=== PATIENT | female | born 1965 | race Caucasian/White ===

== ENCOUNTER 2017-11-25 10:46 | Inpatient (IN) ==
[2017-11-25 11:17] LABS: Basophils # 0.1 K/mcL (0.0-0.2); Basophils % 0.4 %; Eosinophils # 0.1 K/mcL (0.0-0.6); Eosinophils % 1.2 %; Hematocrit 32.4 % (35.3-44.9); Hemoglobin 11.2 g/dL (11.5-15.4); Immature Granulocytes % 0.4 % (0-4); Lymphocytes # 1.5 K/mcL (0.6-4.6); Lymphocytes % 13.5 %; Mean Corpuscular HGB Conc 34.6 g/dL (31.6-35.5); Mean Corpuscular Hemoglobin 30.8 pg (28.0-33.3); Mean Platelet Volume 10.1 fL (9.4-12.4); Monocytes # 0.8 K/mcL (0.0-1.3); Monocytes % 6.6 %; Neutrophils # 8.8 K/mcL (1.6-8.9); Platelet Count 252 K/mcL (140-400); Red Blood Count 3.64 M/mcL (3.82-4.97); Red Cell Distribution Width 12.5 % (11.5-14.5); Segmented Neutrophils % 77.9 %
[2017-11-25 11:38] LABS: Acetaminophen < 10 mcg/mL (10-20); BUN/Creatinine Ratio 19 (6-26); Blood Urea Nitrogen 19 mg/dL (6-20); Calcium 9.8 mg/dL (8.6-10.3); Carbon Dioxide 28 mEq/L (23-29); Chloride 96 mEq/L (98-107); Ethanol < 10 mg/dL (Less than 10); Glucose 114 mg/dL (70-105); Osmolality,Calculated 275 (280-300); Potassium 3.5 mEq/L (3.5-5.1); Salicylate < 2.5 mg/dL (15.0-30.0); Sodium 131 mEq/L (136-145); eGFR For African Americans > 60 (> 60); eGFR For Non-African Americans 58 (> 60)
[2017-11-25 11:46] LABS: Thyroid Stimulating Hormone 2.206 mcIU/mL (0.340-5.600)
[2017-11-25 12:10] LABS: Bilirubin,Urine Negative (Negative); Blood,Urine Negative (Negative); Clarity,Urine Clear (Clear); Color,Urine Yellow (Yellow); Glucose,Urine (UA) Normal (Normal); Ketones,Urine Negative (Negative); Leukocyte Esterase,Urine Negative (Negative); Nitrite,Urine Negative (Negative); Protein,Urine Negative (Neg-Trace); Specific Gravity,Urine 1.012 (1.010-1.025); Urobilinogen,Urine Normal (Normal)
[2017-11-25 12:38] LABS: Amphetamine Screen,Urine Negative ng/mL (Cutoff=1000); Barbiturate Screen,Urine Negative ng/mL (Cutoff=200); Benzodiazepines Screen,Urine Negative ng/mL (Cutoff=200); Cannabinoid Screen,Urine Positive ng/mL (Cutoff = 50); Cocaine Screen,Urine Negative ng/mL (Cutoff= 300); Opiate Screen,Urine Negative ng/mL (Cutoff=300); Phencyclidine Screen,Urine Negative ng/mL (Cutoff=25)
--- NOTE | 2017-11-25 13:47 | Emergency Department Note ---
Disposition Clinical Impression: Visual hallucinations Disposition: Admitted As Inpatient Psych HPI - General Chief Complaint: ED Psychiatric Symptoms Stated Complaint: Hallucinations Time Seen by Provider: 11/25/17 10:59 Source: EMS Mode of arrival: ambulatory Limitations: no limitations - History of Present Illness HPI Narrative: Patient's a 52-year-old female who presented to [facility] ED on 11/25/17 with a chief complaint of hallucinations and insomnia since November 10. Patient reports that her nurse practitioner recently changed her Paxil dose from 20 mg to 40 mg. Since this time, she has been experiencing hallucinations of figures in the house that she recognizes are not really there. She describes them as "dark, stationary figures that do not speak." Patient also reports that she has not slept for the last 3 days. She has a history of intermittent insomnia, which she says has been worse since the . Patient also reports that she had several bouts of hallucinations in the past, but that it is become significantly more prominent in the last 2 weeks. Patient notes that since she has been in the hospital, she has seen several figures in her room that she recognizes are not real. During my conversation with her, she looked rapidly around the room as if seeing things that were not really there. Patient speaks in full and complete sentences, and seems to be fully aware of her condition. She is alert and oriented 3. She endorses a past history of anxiety, bipolar, and opiate abuse. She has been on Suboxone for 3 years. Patient denies having any suicidal ideation. No further complaints at this time. Onset (ago): week(s) Duration: intermittent Improves with: none Worsens with: none Associated Psychiatric Symptoms: visual hallucinations - Related Data Home Medications Medication Instructions Recorded Confirmed Amitriptyline [Elavil] 25 mg PO HS 11/25/17 11/25/17 Atorvastatin [Lipitor] 10 mg PO HS 11/25/17 11/25/17 Baclofen [Lioresal] 10 mg PO TID 11/25/17 11/25/17 Buprenorphine HCl/Naloxone HCl 1.5 tab SL QAM 11/25/17 11/25/17 [Buprenorphin-Naloxon 8-2 mg Sl] Cholecalciferol (D-3) [Vitamin D] 1,000 unit PO DAILY 11/25/17 11/25/17 Gabapentin [Neurontin] 300 mg PO TID 11/25/17 11/25/17 Metoprolol [Lopressor] 50 mg PO BID 11/25/17 11/25/17 Omeprazole [PriLOSEC] 40 mg PO DAILY 11/25/17 11/25/17 PARoxetine HCl [Paroxetine HCl] 40 mg PO DAILY 11/25/17 11/25/17 amLODIPine [Norvasc] 5 mg PO DAILY 11/25/17 11/25/17 hydrOXYzine pamoate [HydrOXYzine 25 - 50 mg PO Q6H PRN 11/25/17 11/25/17 Pamoate] Allergies Allergy/AdvReac Type Severity Reaction Status Date / Time No Known Allergies Allergy Verified 09/05/17 09:41 Constitutional: Reports: as per HPI. Denies: fever, chills, weakness Eyes: Denies: eye pain, eye discharge ENT ED: Reports: as per HPI. Denies: ear pain, throat pain Cardiovascular: Reports: as per HPI. Denies: chest pain, palpitations Respiratory: Reports: as per HPI. Denies: cough, dyspnea, wheezes Gastrointestinal: Reports: as per HPI. Denies: abdominal pain, nausea, vomiting Genitourinary: Reports: as per HPI. Denies: urgency, dysuria, frequency Musculoskeletal: Reports: as per HPI. Denies: back pain, neck pain, joint swelling Integumentary: Reports: as per HPI. Denies: abrasion, lesions Neurological: Reports: as per HPI. Denies: headache, weakness, numbness Psychiatric: Reports: as per HPI, visual hallucinations. Denies: anxiety, depression, suicidal thoughts, homicidal thoughts Endocrine: Reports: as per HPI Past Medical History - Past Medical History Medical history: Reports: hypertension Psychiatric history: Reports: anxiety, bipolar, depression - Social History Smoking Status: Current every day smoker Smokeless Tobacco Status: No Alcohol use: Reports: none Drug use: Reports: opiates, marijuana Physical Exam - General Limitations: no limitations General appearance: alert, in no apparent distress - Head Head exam: atraumatic, normocephalic - Eye Eye exam: Present: normal appearance, PERRL, EOMI - ENT ENT exam: normal exam, normal oropharynx - Neck Neck exam: Present: normal inspection, full ROM - Chest Chest inspection: Present: normal inspection, symmetric chest wall rise - Respiratory Respiratory exam: Present: normal lung sounds bilaterally. Absent: respiratory distress, accessory muscle use, prolonged expiratory phase - Cardiovascular Cardiovascular exam: Present: regular rate, normal rhythm, normal heart sounds, +S1, +S2. Absent: bradycardia, tachycardia, systolic murmur, diastolic murmur - Psychiatric Psychiatric exam: Present: normal affect, other (Experiencing visual hallucinations) - Skin Skin exam: Present: warm, dry, intact Course Course Narrative: Patient is a 52-year-old female who presents with visual hallucinations. Patient has had an intermittent history of visual hallucinations. Her condition has worsened since the 14th of this month since her Paxil dose was changed from 20 mg to 40 mg. Patient does not appear to be a harm to herself or others. She is very well aware of her condition. Patient is able to distinguish what is real from what is not. She denies having any suicidal ideation. She is able to speak in full and complete sentences, and is alert and oriented 3. We will admit patient to for evaluation. Vital Signs Temperature 98.3 F 11/25/17 10:48 Pulse Rate 81 11/25/17 10:48 Respiratory Rate 16 11/25/17 10:48 Blood Pressure 115/70 11/25/17 10:48 O2 Sat by Pulse Oximetry 95 11/25/17 10:48 Temperature 98.3 F 11/25/17 10:48 Pulse Rate 81 11/25/17 10:48 Respiratory Rate 16 11/25/17 10:48 Blood Pressure 115/70 11/25/17 10:48 O2 Sat by Pulse Oximetry 95 11/25/17 10:48 Oxygen Delivery Oxygen Delivery Room Air Psych - Lab Data Result diagrams: 11/25/17 11:05 11/25/17 11:05 Lab Results 11/25/17 11/25/17 11/25/17 Range/Units 11:05 11:05 11:51 WBC 11.3 H (4.3-11.1) K/mcL RBC 3.64 L (3.82-4.97) M/mcL Hgb 11.2 L (11.5-15.4) g/dL Hct 32.4 L (35.3-44.9) % MCV 89.0 (83.0-100.0) fL MCH 30.8 (28.0-33.3) pg MCHC 34.6 (31.6-35.5) g/dL RDW 12.5 (11.5-14.5) % Plt Count 252 (140-400) K/mcL MPV 10.1 (9.4-12.4) fL Immature Gran % 0.4 (0-4) % Seg Neutrophils % 77.9 % Lymphocytes % 13.5 % Monocytes % 6.6 % Eosinophils % 1.2 % Basophils % 0.4 % Neutrophils # 8.8 (1.6-8.9) K/mcL Lymphocytes # 1.5 (0.6-4.6) K/mcL Monocytes # 0.8 (0.0-1.3) K/mcL Eosinophils # 0.1 (0.0-0.6) K/mcL Basophils # 0.1 (0.0-0.2) K/mcL Sodium 131 L (136-145) mEq/L Potassium 3.5 (3.5-5.1) mEq/L Chloride 96 L (98-107) mEq/L Carbon Dioxide 28 (23-29) mEq/L BUN 19 (6-20) mg/dL Creatinine 1.00 (0.60-1.20) mg/dL Est GFR ( Amer) > 60 (> 60) Est GFR (Non-Af Amer) 58 L (> 60) BUN/Creatinine Ratio 19 (6-26) Glucose 114 H (70-105) mg/dL Calculated Osmolality 275 L (280-300) Calcium 9.8 (8.6-10.3) mg/dL TSH 2.206 (0.340-5.600) mcIU/mL Urine Color Yellow (Yellow) Urine Clarity Clear (Clear) Urine pH 6.0 (5.0-8.0) pH Units Ur Specific [place] 1.012 (1.010-1.025) Urine Protein Negative (Neg-Trace) mg/dL Urine Glucose (UA) Normal (Normal) mg/dL Urine Ketones Negative (Negative) mg/dL Urine Blood Negative (Negative) Urine Nitrite Negative (Negative) Urine Bilirubin Negative (Negative) Urine Urobilinogen Normal (Normal) mg/dL Ur Leukocyte Esterase Negative (Negative) Salicylates < 2.5 L (15.0-30.0) mg/dL Urine Opiates Screen (Azgcym=461) ng/mL Acetaminophen < 10 L (10-20) mcg/mL Ur Barbiturates Screen (Fipqlh=037) ng/mL Ur Phencyclidine Scrn (Cutoff=25) ng/mL Ur Amphetamines Screen (Oilhkt=7464) ng/mL U Benzodiazepines Scrn (Oczzvo=260) ng/mL Urine Cocaine Screen (Cutoff= 300) ng/mL U Marijuana (THC) Screen (Cutoff = 50) ng/mL Ethyl Alcohol < 10 (Less than 10) mg/dL 11/25/17 Range/Units 11:51 WBC (4.3-11.1) K/mcL RBC (3.82-4.97) M/mcL Hgb (11.5-15.4) g/dL Hct (35.3-44.9) % MCV (83.0-100.0) fL MCH (28.0-33.3) pg MCHC (31.6-35.5) g/dL RDW (11.5-14.5) % Plt Count (140-400) K/mcL MPV (9.4-12.4) fL Immature Gran % (0-4) % Seg Neutrophils % % Lymphocytes % % Monocytes % % Eosinophils % % Basophils % % Neutrophils # (1.6-8.9) K/mcL Lymphocytes # (0.6-4.6) K/mcL Monocytes # (0.0-1.3) K/mcL Eosinophils # (0.0-0.6) K/mcL Basophils # (0.0-0.2) K/mcL Sodium (136-145) mEq/L Potassium (3.5-5.1) mEq/L Chloride (98-107) mEq/L Carbon Dioxide (23-29) mEq/L BUN (6-20) mg/dL Creatinine (0.60-1.20) mg/dL Est GFR ( Amer) (> 60) Est GFR (Non-Af Amer) (> 60) BUN/Creatinine Ratio (6-26) Glucose (70-105) mg/dL Calculated Osmolality (280-300) Calcium (8.6-10.3) mg/dL TSH (0.340-5.600) mcIU/mL Urine Color (Yellow) Urine Clarity (Clear) Urine pH (5.0-8.0) pH Units Ur Specific [place] (1.010-1.025) Urine Protein (Neg-Trace) mg/dL Urine Glucose (UA) (Normal) mg/dL Urine Ketones (Negative) mg/dL Urine Blood (Negative) Urine Nitrite (Negative) Urine Bilirubin (Negative) Urine Urobilinogen (Normal) mg/dL Ur Leukocyte Esterase (Negative) Salicylates (15.0-30.0) mg/dL Urine Opiates Screen Negative (Vyhhxf=093) ng/mL Acetaminophen (10-20) mcg/mL Ur Barbiturates Screen Negative (Hdazep=089) ng/mL Ur Phencyclidine Scrn Negative (Cutoff=25) ng/mL Ur Amphetamines Screen Negative (Ymihdv=5450) ng/mL U Benzodiazepines Scrn Negative (Ifpaii=119) ng/mL Urine Cocaine Screen Negative (Cutoff= 300) ng/mL U Marijuana (THC) Screen Positive H (Cutoff = 50) ng/mL Ethyl Alcohol (Less than 10) mg/dL Psychiatric Medical Clearance - Medical Clearance Checklist Does the patient have a NEW psychiatric condition?: No Any abnormalities indicating possible medical illness?: No Any history of medical issues?: No Medical History: No Social History Section defined Any abnormal vital signs prior to transfer?: No Current Vitals: Last Vital Signs Temp 98.3 F 11/25/17 10:48 Pulse 81 11/25/17 10:48 Resp 16 11/25/17 10:48 BP 115/70 11/25/17 10:48 Pulse Ox 95 11/25/17 10:48 Is the patient intoxicated or cognitively impaired?: No Psychiatric Lab Panel: Drug Levels and Toxicity 11/25/17 11/25/17 11:05 11:51 Urine Opiates Screen Negative Acetaminophen < 10 L Ur Barbiturates Screen Negative Ur Phencyclidine Scrn Negative Ur Amphetamines Screen Negative U Benzodiazepines Scrn Negative Urine Cocaine Screen Negative U Marijuana (THC) Screen Positive H Ethyl Alcohol < 10 Any abnormalities on the physical exam?: No Abnormal Labs: Abnormal lab results WBC 11.3 K/mcL (4.3-11.1) H 11/25/17 11:05 RBC 3.64 M/mcL (3.82-4.97) L 11/25/17 11:05 Hgb 11.2 g/dL (11.5-15.4) L 11/25/17 11:05 Hct 32.4 % (35.3-44.9) L 11/25/17 11:05 Sodium 131 mEq/L (136-145) L 11/25/17 11:05 Chloride 96 mEq/L (98-107) L 11/25/17 11:05 Est GFR (Non-Af Amer) 58 (> 60) L 11/25/17 11:05 Glucose 114 mg/dL (70-105) H 11/25/17 11:05 Calculated Osmolality 275 (280-300) L 11/25/17 11:05 Salicylates < 2.5 mg/dL (15.0-30.0) L 11/25/17 11:05 Acetaminophen < 10 mcg/mL (10-20) L 11/25/17 11:05 U Marijuana (THC) Screen Positive ng/mL (Cutoff = 50) H 11/25/17 11:51 Does the patient require durable medical equiptment?: No Is the patient ambulatory?: No Is the patient a fall risk?: No Has the patient been medically cleared?: Yes Any acute medical condition require Tx prior to transfer?: No Statement of Medical Clearance: I have evaluated the patient, reviewed diagnostic information, and certify that the patient's medical condition is sufficiently stable that transfer to the psychiatric unit does not pose a significant risk of deterioration.
--- NOTE | 2017-11-25 13:49 | Emergency Department Note ---
Disposition Clinical Impression: Visual hallucinations Disposition: Admitted As Inpatient Condition: Fair Psych HPI - General Chief Complaint: ED Psychiatric Symptoms Stated Complaint: Hallucinations Time Seen by Provider: 11/25/17 10:59 Source: patient, EMS Mode of arrival: ambulatory Limitations: no limitations Nursing Notes Reviewed: Yes Vital Signs Reviewed: Yes - Related Data Home Medications Medication Instructions Recorded Confirmed Amitriptyline [Elavil] 25 mg PO HS 11/25/17 11/25/17 Atorvastatin [Lipitor] 10 mg PO HS 11/25/17 11/25/17 Baclofen [Lioresal] 10 mg PO TID 11/25/17 11/25/17 Buprenorphine HCl/Naloxone HCl 1.5 tab SL QAM 11/25/17 11/25/17 [Buprenorphin-Naloxon 8-2 mg Sl] Cholecalciferol (D-3) [Vitamin D] 1,000 unit PO DAILY 11/25/17 11/25/17 Gabapentin [Neurontin] 300 mg PO TID 11/25/17 11/25/17 Metoprolol [Lopressor] 50 mg PO BID 11/25/17 11/25/17 Omeprazole [PriLOSEC] 40 mg PO DAILY 11/25/17 11/25/17 PARoxetine HCl [Paroxetine HCl] 40 mg PO DAILY 11/25/17 11/25/17 amLODIPine [Norvasc] 5 mg PO DAILY 11/25/17 11/25/17 hydrOXYzine pamoate [HydrOXYzine 25 - 50 mg PO Q6H PRN 11/25/17 11/25/17 Pamoate] Allergies Allergy/AdvReac Type Severity Reaction Status Date / Time No Known Allergies Allergy Verified 09/05/17 09:41 Past Medical History - Past Medical History Medical history: Reports: hypertension Psychiatric history: Reports: anxiety, bipolar, depression - Social History Smoking Status: Current every day smoker Smokeless Tobacco Status: No Alcohol use: Reports: none Drug use: Reports: opiates, marijuana Physical Exam - General Limitations: no limitations General appearance: alert, in no apparent distress Course Vital Signs Temperature 98.3 F 11/25/17 10:48 Pulse Rate 81 11/25/17 10:48 Respiratory Rate 16 11/25/17 10:48 Blood Pressure 115/70 11/25/17 10:48 O2 Sat by Pulse Oximetry 95 11/25/17 10:48 Temperature 98.3 F 11/25/17 10:48 Pulse Rate 81 11/25/17 10:48 Respiratory Rate 16 11/25/17 10:48 Blood Pressure 115/70 11/25/17 10:48 O2 Sat by Pulse Oximetry 95 11/25/17 10:48 Oxygen Delivery Oxygen Delivery Room Air Psych - Lab Data Result diagrams: 11/25/17 11:05 11/25/17 11:05 Lab Results 11/25/17 11/25/17 11/25/17 Range/Units 11:05 11:05 11:51 WBC 11.3 H (4.3-11.1) K/mcL RBC 3.64 L (3.82-4.97) M/mcL Hgb 11.2 L (11.5-15.4) g/dL Hct 32.4 L (35.3-44.9) % MCV 89.0 (83.0-100.0) fL MCH 30.8 (28.0-33.3) pg MCHC 34.6 (31.6-35.5) g/dL RDW 12.5 (11.5-14.5) % Plt Count 252 (140-400) K/mcL MPV 10.1 (9.4-12.4) fL Immature Gran % 0.4 (0-4) % Seg Neutrophils % 77.9 % Lymphocytes % 13.5 % Monocytes % 6.6 % Eosinophils % 1.2 % Basophils % 0.4 % Neutrophils # 8.8 (1.6-8.9) K/mcL Lymphocytes # 1.5 (0.6-4.6) K/mcL Monocytes # 0.8 (0.0-1.3) K/mcL Eosinophils # 0.1 (0.0-0.6) K/mcL Basophils # 0.1 (0.0-0.2) K/mcL Sodium 131 L (136-145) mEq/L Potassium 3.5 (3.5-5.1) mEq/L Chloride 96 L (98-107) mEq/L Carbon Dioxide 28 (23-29) mEq/L BUN 19 (6-20) mg/dL Creatinine 1.00 (0.60-1.20) mg/dL Est GFR ( Amer) > 60 (> 60) Est GFR (Non-Af Amer) 58 L (> 60) BUN/Creatinine Ratio 19 (6-26) Glucose 114 H (70-105) mg/dL Calculated Osmolality 275 L (280-300) Calcium 9.8 (8.6-10.3) mg/dL TSH 2.206 (0.340-5.600) mcIU/mL Urine Color Yellow (Yellow) Urine Clarity Clear (Clear) Urine pH 6.0 (5.0-8.0) pH Units Ur Specific [place] 1.012 (1.010-1.025) Urine Protein Negative (Neg-Trace) mg/dL Urine Glucose (UA) Normal (Normal) mg/dL Urine Ketones Negative (Negative) mg/dL Urine Blood Negative (Negative) Urine Nitrite Negative (Negative) Urine Bilirubin Negative (Negative) Urine Urobilinogen Normal (Normal) mg/dL Ur Leukocyte Esterase Negative (Negative) Salicylates < 2.5 L (15.0-30.0) mg/dL Urine Opiates Screen ([place]we[place]=918) ng/mL Acetaminophen < 10 L (10-20) mcg/mL Ur Barbiturates Screen (Dfjlct=000) ng/mL Ur Phencyclidine Scrn (Cutoff=25) ng/mL Ur Amphetamines Screen (Qvcsiz=4512) ng/mL U Benzodiazepines Scrn (Tmbtsf=874) ng/mL Urine Cocaine Screen (Cutoff= 300) ng/mL U Marijuana (THC) Screen (Cutoff = 50) ng/mL Ethyl Alcohol < 10 (Less than 10) mg/dL 11/25/17 Range/Units 11:51 WBC (4.3-11.1) K/mcL RBC (3.82-4.97) M/mcL Hgb (11.5-15.4) g/dL Hct (35.3-44.9) % MCV (83.0-100.0) fL MCH (28.0-33.3) pg MCHC (31.6-35.5) g/dL RDW (11.5-14.5) % Plt Count (140-400) K/mcL MPV (9.4-12.4) fL Immature Gran % (0-4) % Seg Neutrophils % % Lymphocytes % % Monocytes % % Eosinophils % % Basophils % % Neutrophils # (1.6-8.9) K/mcL Lymphocytes # (0.6-4.6) K/mcL Monocytes # (0.0-1.3) K/mcL Eosinophils # (0.0-0.6) K/mcL Basophils # (0.0-0.2) K/mcL Sodium (136-145) mEq/L Potassium (3.5-5.1) mEq/L Chloride (98-107) mEq/L Carbon Dioxide (23-29) mEq/L BUN (6-20) mg/dL Creatinine (0.60-1.20) mg/dL Est GFR ( Amer) (> 60) Est GFR (Non-Af Amer) (> 60) BUN/Creatinine Ratio (6-26) Glucose (70-105) mg/dL Calculated Osmolality (280-300) Calcium (8.6-10.3) mg/dL TSH (0.340-5.600) mcIU/mL Urine Color (Yellow) Urine Clarity (Clear) Urine pH (5.0-8.0) pH Units Ur Specific [place] (1.010-1.025) Urine Protein (Neg-Trace) mg/dL Urine Glucose (UA) (Normal) mg/dL Urine Ketones (Negative) mg/dL Urine Blood (Negative) Urine Nitrite (Negative) Urine Bilirubin (Negative) Urine Urobilinogen (Normal) mg/dL Ur Leukocyte Esterase (Negative) Salicylates (15.0-30.0) mg/dL Urine Opiates Screen Negative (Lipcta=707) ng/mL Acetaminophen (10-20) mcg/mL Ur Barbiturates Screen Negative (Vutswn=956) ng/mL Ur Phencyclidine Scrn Negative (Cutoff=25) ng/mL Ur Amphetamines Screen Negative (Luhlmz=4114) ng/mL U Benzodiazepines Scrn Negative (Quhhia=539) ng/mL Urine Cocaine Screen Negative (Cutoff= 300) ng/mL U Marijuana (THC) Screen Positive H (Cutoff = 50) ng/mL Ethyl Alcohol (Less than 10) mg/dL Psychiatric Medical Clearance - Medical Clearance Checklist Medical History: No Social History Section defined Current Vitals: Last Vital Signs Temp 98.3 F 11/25/17 10:48 Pulse 81 11/25/17 10:48 Resp 16 11/25/17 10:48 BP 115/70 11/25/17 10:48 Pulse Ox 95 11/25/17 10:48 Psychiatric Lab Panel: Drug Levels and Toxicity 11/25/17 11/25/17 11:05 11:51 Urine Opiates Screen Negative Acetaminophen < 10 L Ur Barbiturates Screen Negative Ur Phencyclidine Scrn Negative Ur Amphetamines Screen Negative U Benzodiazepines Scrn Negative Urine Cocaine Screen Negative U Marijuana (THC) Screen Positive H Ethyl Alcohol < 10 Abnormal Labs: Abnormal lab results WBC 11.3 K/mcL (4.3-11.1) H 11/25/17 11:05 RBC 3.64 M/mcL (3.82-4.97) L 11/25/17 11:05 Hgb 11.2 g/dL (11.5-15.4) L 11/25/17 11:05 Hct 32.4 % (35.3-44.9) L 11/25/17 11:05 Sodium 131 mEq/L (136-145) L 11/25/17 11:05 Chloride 96 mEq/L (98-107) L 11/25/17 11:05 Est GFR (Non-Af Amer) 58 (> 60) L 11/25/17 11:05 Glucose 114 mg/dL (70-105) H 11/25/17 11:05 Calculated Osmolality 275 (280-300) L 11/25/17 11:05 Salicylates < 2.5 mg/dL (15.0-30.0) L 11/25/17 11:05 Acetaminophen < 10 mcg/mL (10-20) L 11/25/17 11:05 U Marijuana (THC) Screen Positive ng/mL (Cutoff = 50) H 11/25/17 11:51 Statement of Medical Clearance: I have evaluated the patient, reviewed diagnostic information, and certify that the patient's medical condition is sufficiently stable that transfer to the psychiatric unit does not pose a significant risk of deterioration. Attestation Statement - Attestation Attestation: I, Liu Campa, examined this patient and my medical decision-making was reviewed with the [employer]/PA/Advanced Practice Nurse/Resident Physician. I agree with the documented findings, disposition and treatment plan as described except to the extent set forth below. 52-year-old female presents emergency Department with concerns of visual hallucinations. Patient states symptoms have been occurring over the past 24 hours. She reports her Paxil was increased from 20-40 mg. She is now unable to sleep over the past 3 days. She reports a history of opiate abuse but denies methamphetamine abuse. Denies suicidal ideation or homicidal ideation. Patient states the visual hallucinations do not speak with her and are not command hallucinations. Patient has a history of hallucinations in the past however this has become much worse for her. Patient will be medically cleared and seen by behavioral health.
[2017-11-25] MEDS ORDERED: *HR* LORazepam 1 MG TABLET PO PRN (19:55)
[2017-11-25] MEDS ORDERED: Mag Hydrox/Al Hydrox/Simeth 30 ML UDC PO PRN (19:55)
[2017-11-25] MEDS ORDERED: Haloperidol Lactate 5 MG/ML VIAL IM PRN (19:55)
[2017-11-25] MEDS ORDERED: *HR* LORazepam 2 MG/ML VIAL IM PRN (19:55)
[2017-11-25] MEDS ORDERED: MOM Conc 10 ML UD.LIQ PO PRN (19:55)
[2017-11-25] MEDS: Baclofen 10 MG TABLET PO SCH (21:32)
[2017-11-25] MEDS: Gabapentin 300 MG CAPSULE PO SCH (21:32)
[2017-11-26] MEDS ORDERED: OLANZapine 10 MG VIAL IM ONE (00:07)
--- NOTE | 2017-11-26 00:12 | Event Note ---
Date of Encounter: 11/26/17 Time of Encounter: 00:10 Cross cover noted Evaluated patient at bedside Small laceration over post-scalp due to fall in the room Patient admitted for hallucination and confusion A/P direct pressure over laceration. Does not appear to need stitches CT head w/o contrast, will attempt dose of olanzapine to assist with tolerability with CT check PT/INR sitter to avoid repeat falls watch closely for now
[2017-11-26 00:34] LABS: INR 1.2; Prothrombin Time 12.7 Seconds (9.4-12.1)
[2017-11-26 00:37] LABS: Activated Partial Thrombo Time 35.9 Seconds (26.0-36.0)
[2017-11-26] MEDS: Cholecalciferol (D-3) 1,000 UNIT TABLET PO SCH (08:54)
[2017-11-26] MEDS: Gabapentin 300 MG CAPSULE PO SCH ×3 (08:55→22:30)
[2017-11-26] MEDS: amLODIPine 5 MG TABLET PO SCH (08:55)
[2017-11-26] MEDS: Baclofen 10 MG TABLET PO SCH ×3 (08:55→22:31)
--- NOTE | 2017-11-26 12:05 | Psychiatry History & Physical ---
Date of Encounter: 11/27/17 Time of Encounter: 12:02 History of Present Illness Patient Stated Chief Complaint: Hallucinations Medicare Admission Attestation: For traditional Medicare patients the provided hospital inpatient services are reasonable and necessary and in the case of services not specified as inpatient -only under 42 CFR 419.22 (n), that they are appropriately provided as inpatient services in accordance 42 CFR 412.3. For Critical [facility] the patient may reasonably be expected to be discharged or transferred to a hospital within 96 hours after admission to the Critical Access Hospital. Admitted From: Emergency Dept History of Present Illness: Ms. Dale is a 52 year old female admitted from the emergency department for evaluation of hallucination and paranoia. Patient was brought in by her family reporting increasing confusion and visual hallucinations. UDS was positive for THC. Patient has a history of psychosis and noncompliance with medication and substance abuse . In the ED patient was uncooperative with this evaluation and assessment and she was restless anxious and experiencing visual hallucination local under her bed she thinks there are people hiding under her bed. Complete history information could not be obtained at this time because outpatient mental status and inability to provide history information. Past Med Surg Social Fam HX - Past Medical History Medical history: hypertension - Past Psychiatric History Psychiatric history: Reports: schizophrenia - Social History Smoking Status: Current every day smoker Smokeless Tobacco Status: No Alcohol use: none Drug use: opiates, marijuana Medications & Allergies Amitriptyline [Elavil] 25 mg PO HS 11/25/17 [History] Atorvastatin [Lipitor] 10 mg PO HS 11/25/17 [History] Baclofen [Lioresal] 10 mg PO TID 11/25/17 [History] Buprenorphine HCl/Naloxone HCl [Buprenorphin-Naloxon 8-2 mg Sl] 1.5 tab SL QAM 11/25/17 [History] Cholecalciferol (D-3) [Vitamin D] 1,000 unit PO DAILY 11/25/17 [History] Gabapentin [Neurontin] 300 mg PO TID 11/25/17 [History] Metoprolol [Lopressor] 50 mg PO BID 11/25/17 [History] Omeprazole [PriLOSEC] 40 mg PO DAILY 11/25/17 [History] PARoxetine HCl [Paroxetine HCl] 40 mg PO DAILY 11/25/17 [History] amLODIPine [Norvasc] 5 mg PO DAILY 11/25/17 [History] hydrOXYzine pamoate [HydrOXYzine Pamoate] 25 - 50 mg PO Q6H PRN 11/25/17 [ History] 3 Allergy/AdvReac Type Severity Reaction Status Date / Time No Known Allergies Allergy Verified 09/05/17 09:41 Review of Systems Psychiatric: Reports: auditory hallucinations, visual hallucinations Exam - Additional Information Additional Information: head: Laceration on the back of the head due to fall. Evaluated by CT and medical attention. - Constitutional Vitals: Temp Pulse Resp BP Pulse Ox 97.9 F 85 16 115/69 95 11/26/17 08:43 11/26/17 08:43 11/26/17 08:43 11/26/17 08:43 11/25/17 10:48 General appearance: age & developmentally appropriate, well-nourished, unkempt, average - Musculoskeletal Gait: normal Station: relaxed Strength & Tone: normal for patient - Psychiatric Patient Orientation: Yes Person, Yes Time, Yes Place Level of alertness: Sedated Behavior: anxious, distractible, withdrawn Psychomotor activity: Slowed Eye Contact: Avoids Eye Contact Mood Description: Labile Affect description: labile, anxious Speech Volume: Normal Speech pattern: Inappropriate to situation Language & Vocabulary: limited Thought Process: Tangential, Disorganized Thought Content: Yes Paranoid delusion, Yes Somatic delusion Perceptual Disturbances: Yes Reacting to internal stimuli, Yes Visual hallucinations Attention Span Ability: Unable to Focus Memory Description: Immediate Impaired, Recent Impaired, Remote Impaired Patient Reliability: Not Reliable Historian Fund of knowledge: Yes aware of current events Intelligence Estimate: Below Average Judgment: Poor Insight: Minimal Results - Drug Levels and Toxicology Drug Levels and Toxicology: Drug Levels and Toxicity 11/26/17 00:14 PT 12.7 H INR 1.2 APTT 35.9 - Labs Labs: Laboratory Last Values WBC 11.3 K/mcL (4.3-11.1) H 11/25/17 11:05 RBC 3.64 M/mcL (3.82-4.97) L 11/25/17 11:05 Hgb 11.2 g/dL (11.5-15.4) L 11/25/17 11:05 Hct 32.4 % (35.3-44.9) L 11/25/17 11:05 MCV 89.0 fL (83.0-100.0) 11/25/17 11:05 MCH 30.8 pg (28.0-33.3) 11/25/17 11:05 MCHC 34.6 g/dL (31.6-35.5) 11/25/17 11:05 RDW 12.5 % (11.5-14.5) 11/25/17 11:05 Plt Count 252 K/mcL (140-400) 11/25/17 11:05 MPV 10.1 fL (9.4-12.4) 11/25/17 11:05 Immature Gran % 0.4 % (0-4) 11/25/17 11:05 Seg Neutrophils % 77.9 % 11/25/17 11:05 Lymphocytes % 13.5 % 11/25/17 11:05 Monocytes % 6.6 % 11/25/17 11:05 Eosinophils % 1.2 % 11/25/17 11:05 Basophils % 0.4 % 11/25/17 11:05 Neutrophils # 8.8 K/mcL (1.6-8.9) 11/25/17 11:05 Lymphocytes # 1.5 K/mcL (0.6-4.6) 11/25/17 11:05 Monocytes # 0.8 K/mcL (0.0-1.3) 11/25/17 11:05 Eosinophils # 0.1 K/mcL (0.0-0.6) 11/25/17 11:05 Basophils # 0.1 K/mcL (0.0-0.2) 11/25/17 11:05 PT 12.7 Seconds (9.4-12.1) H 11/26/17 00:14 INR 1.2 11/26/17 00:14 APTT 35.9 Seconds (26.0-36.0) 11/26/17 00:14 Sodium 131 mEq/L (136-145) L 11/25/17 11:05 Potassium 3.5 mEq/L (3.5-5.1) 11/25/17 11:05 Chloride 96 mEq/L (98-107) L 11/25/17 11:05 Carbon Dioxide 28 mEq/L (23-29) 11/25/17 11:05 BUN 19 mg/dL (6-20) 11/25/17 11:05 Creatinine 1.00 mg/dL (0.60-1.20) 11/25/17 11:05 Est GFR ( Amer) > 60 (> 60) 11/25/17 11:05 Est GFR (Non-Af Amer) 58 (> 60) L 11/25/17 11:05 BUN/Creatinine Ratio 19 (6-26) 11/25/17 11:05 Glucose 114 mg/dL (70-105) H 11/25/17 11:05 Calculated Osmolality 275 (280-300) L 11/25/17 11:05 Calcium 9.8 mg/dL (8.6-10.3) 11/25/17 11:05 TSH 2.206 mcIU/mL (0.340-5.600) 11/25/17 11:05 Urine Color Yellow (Yellow) 11/25/17 11:51 Urine Clarity Clear (Clear) 11/25/17 11:51 Urine pH 6.0 pH Units (5.0-8.0) 11/25/17 11:51 Ur Specific [place] 1.012 (1.010-1.025) 11/25/17 11:51 Urine Protein Negative mg/dL (Neg-Trace) 11/25/17 11:51 Urine Glucose (UA) Normal mg/dL (Normal) 11/25/17 11:51 Urine Ketones Negative mg/dL (Negative) 11/25/17 11:51 Urine Blood Negative (Negative) 11/25/17 11:51 Urine Nitrite Negative (Negative) 11/25/17 11:51 Urine Bilirubin Negative (Negative) 11/25/17 11:51 Urine Urobilinogen Normal mg/dL (Normal) 11/25/17 11:51 Ur Leukocyte Esterase Negative (Negative) 11/25/17 11:51 Salicylates < 2.5 mg/dL (15.0-30.0) L 11/25/17 11:05 Urine Opiates Screen Negative ng/mL (Rcumve=683) 11/25/17 11:51 Acetaminophen < 10 mcg/mL (10-20) L 11/25/17 11:05 Ur Barbiturates Screen Negative ng/mL (Rhaflm=732) 11/25/17 11:51 Ur Phencyclidine Scrn Negative ng/mL (Cutoff=25) 11/25/17 11:51 Ur Amphetamines Screen Negative ng/mL (Vffyuk=3205) 11/25/17 11:51 U Benzodiazepines Scrn Negative ng/mL (Faxnpt=053) 11/25/17 11:51 Urine Cocaine Screen Negative ng/mL (Cutoff= 300) 11/25/17 11:51 U Marijuana (THC) Screen Positive ng/mL (Cutoff = 50) H 11/25/17 11:51 Ethyl Alcohol < 10 mg/dL (Less than 10) 11/25/17 11:05 - Impressions Impressions Head CT 11/26/17 23:55 IMPRESSION: No acute intracranial abnormality. Small posterior scalp hematoma. D/ / Joe Pederson MD / Joe Pederson MD Interpreting Provider: Joe Pederson MD Assessment and Plan (1) Altered mental status, unspecified Current visit: Yes Status: Acute Plan: Admit inpatient for safety and stabilization, Close observation, Suicide Precautions per unit protocol, Encourage participation in unit milieu, Group Therapy, Monitor sleep, Monitor appetite Risks, benefits, side effects, alternatives discussed w/pt: Yes Patient agreeable to treatment: Yes Qualifiers: Qualified Code(s): R41.82 - Altered mental status, unspecified
[2017-11-27] MEDS: Gabapentin 300 MG CAPSULE PO SCH ×2 (09:07→17:00)
[2017-11-27] MEDS: Cholecalciferol (D-3) 1,000 UNIT TABLET PO SCH (09:08)
[2017-11-27] MEDS: Baclofen 10 MG TABLET PO SCH ×3 (09:08→20:29)
[2017-11-27] MEDS: amLODIPine 5 MG TABLET PO SCH (09:09)
--- NOTE | 2017-11-27 14:37 | Psychiatry Progress Note ---
Date of Encounter: 11/27/17 Time of Encounter: 14:34 Subjective Interval history: patient seen for follow- up. Case discussed with t treatment team. Staff report she is lethargic and sleeping longer hours. She is cooperative and medication compliant. No agitation. Denies hallucination. Review of Systems Psychiatric: Reports: auditory hallucinations, visual hallucinations Results - Vital Signs Vital Signs: Temp Pulse Resp BP Pulse Ox 98.1 F 88 16 126/78 95 11/27/17 09:00 11/27/17 09:00 11/27/17 09:00 11/27/17 09:00 11/25/17 10:48 - Impressions ITS Impressions Head CT 11/26/17 23:55 IMPRESSION: No acute intracranial abnormality. Small posterior scalp hematoma. D/ / Joe Pederson MD / Joe Pederson MD Interpreting Provider: Joe Pederson MD Assessment and Plan (1) Altered mental status, unspecified Current visit: Yes Status: Acute Plan: Continue hospitalization, Close observation, Suicide Precautions per unit protocol, Encourage participation in unit milieu, Group Therapy, Monitor sleep, Monitor appetite Additional Plan: DC amitriptyline, reduce gabapentin 300 mg twice a day Risks, benefits, side effects, alternatives discussed w/pt: Yes Patient agreeable to treatment: Yes Qualifiers: Qualified Code(s): R41.82 - Altered mental status, unspecified Consult Discharge Plan - Plan Referrals: NONE,PCP [Primary Care Provider] - Psychiatry Exam - Constitutional Vitals: Temp Pulse Resp BP Pulse Ox 98.1 F 88 16 126/78 95 11/27/17 09:00 11/27/17 09:00 11/27/17 09:00 11/27/17 09:00 11/25/17 10:48 - Psychiatric Level of alertness: Other (patient was asleep and could not be interviewed)
[2017-11-27] MEDS: Nicotine 14 MG PATCH.TD24 TD SCH (17:01)
[2017-11-27] MEDS: traZODone 50 MG TABLET PO PRN (20:29)
[2017-11-27] MEDS: hydrOXYzine pamoate 25 MG CAPSULE PO PRN (20:29)
[2017-11-28] MEDS: Acetaminophen 325 MG TABLET PO PRN (01:35)
[2017-11-28] MEDS: Nicotine 14 MG PATCH.TD24 TD SCH (10:54)
[2017-11-28] MEDS: Baclofen 10 MG TABLET PO SCH ×3 (10:55→21:19)
[2017-11-28] MEDS: amLODIPine 5 MG TABLET PO SCH (10:55)
[2017-11-28] MEDS: Cholecalciferol (D-3) 1,000 UNIT TABLET PO SCH (10:55)
[2017-11-28] MEDS: Gabapentin 300 MG CAPSULE PO SCH ×2 (12:16→16:17)
--- NOTE | 2017-11-28 14:49 | Psychiatry Progress Note ---
Date of Encounter: 11/28/17 Time of Encounter: 14:00 Subjective Interval history: Patient seen for follow-up. Case discussed with treatment team. Staff report patient is more alert, not lethargic, she is out of her room. More interactive , not agitated. She denies hallucinations. She signed in voluntarily. Review of Systems Psychiatric: Reports: auditory hallucinations, visual hallucinations Results - Vital Signs Vital Signs: Temp Pulse Resp BP Pulse Ox 97.0 F L 16 88 128/79 95 11/28/17 09:00 11/28/17 09:00 11/28/17 09:00 11/28/17 09:00 11/25/17 10:48 - Impressions ITS Impressions Head CT 11/26/17 23:55 IMPRESSION: No acute intracranial abnormality. Small posterior scalp hematoma. D/ / Joe Pederson MD / Joe Pederson MD Interpreting Provider: Joe Pederson MD Assessment and Plan (1) Altered mental status, unspecified Current visit: Yes Status: Acute Plan: Continue hospitalization, Close observation, Suicide Precautions per unit protocol, Encourage participation in unit milieu, Group Therapy, Monitor sleep, Monitor appetite Risks, benefits, side effects, alternatives discussed w/pt: Yes Patient agreeable to treatment: Yes Qualifiers: Qualified Code(s): R41.82 - Altered mental status, unspecified Consult Discharge Plan - Plan [facility] - 12/16/17 2:30 pm (The above appointment is with Sherlyn Amaya for outpatient mental health and substance abuse counseling services. Please complete and bring the [facility] intake packet you were provided at the hospital to this appointment. When you come to your first appointment, you will be meeting with business office staff, meeting with a counselor, and developing a treatment plan. You will receive follow- up appointments for on-going services, which could include community support, mental health and substance abuse counseling, groups/partial hospitalization programming and medication assisted treatment. You will also need to bring the following to your first appointment as well: 1) proof of household income (two consecutive pay stubs, social security award letter, bank statement, statement letter from [facility], child support statement, IRS 1040 or W2 form, or a statement from the person who financially supports you stating they help provide for your basic needs), 2) proof of residency (drivers license, a piece of mail showing your address, a statement from person you live with verifying you live at their address), 3) your social security card, 4) photo ID, 5) your insurance card (if you have commercial insurance you must call to obtain a prior authorization number before you arrive to your first appointment) and 6) if you do not have insurance but have applied for Medicaid, please bring verification you have applied. The above appointment(s) reflects first availability. You may contact the office regularly to check for cancellations that may allow you to be seen sooner.) Princess Macias [Advanced Practice Nurse] - 12/22/17 1:20 pm (The above appointment is with Princess Macias for primary healthcare and medication management services. The above appointment reflects first availability. You may contact the office on a regular basis to check for cancellations that may allow you to be seen sooner.) Psychiatry Exam - Constitutional Vitals: Temp Pulse Resp BP Pulse Ox 97.0 F L 16 88 128/79 95 11/28/17 09:00 11/28/17 09:00 11/28/17 09:00 11/28/17 09:00 11/25/17 10:48 General appearance: age & developmentally appropriate, well-nourished, disheveled - Musculoskeletal Gait: normal Station: relaxed Strength & Tone: normal for patient - Psychiatric Patient Orientation: Yes Person, Yes Time, Yes Place Level of alertness: Alert Behavior: calm, cooperative Psychomotor activity: Normal Eye Contact: Maintains Eye Contact Mood Description: Euthymic/stable Affect description: congruent with mood, full range Speech Volume: Normal Speech pattern: normal rate, normal rhythm, normal tone, fluent, spontaneous Language & Vocabulary: consistent with education Thought Process: Linear, Goal Oriented, Tangential, Thought Blocking Thought Content: No Suicidal ideation, No Homicidal ideation, No Overt delusions Perceptual Disturbances: No Auditory hallucinations, No Visual hallucinations Attention Span Ability: Capable of Focused Attention, Unable to Focus Memory Description: Grossly Intact Patient Reliability: Not Reliable Historian Fund of knowledge: Yes abstraction ability, Yes aware of current events Intelligence Estimate: Average Judgment: Limited Insight: Partial
[2017-11-28] MEDS: traZODone 50 MG TABLET PO PRN (21:19)
[2017-11-28] MEDS: hydrOXYzine pamoate 25 MG CAPSULE PO PRN (21:20)
[2017-11-29] MEDS: Nicotine 14 MG PATCH.TD24 TD SCH (09:59)
[2017-11-29] MEDS: amLODIPine 5 MG TABLET PO SCH (09:59)
[2017-11-29] MEDS: Cholecalciferol (D-3) 1,000 UNIT TABLET PO SCH (10:00)
[2017-11-29] MEDS: Baclofen 10 MG TABLET PO SCH ×3 (10:00→21:47)
[2017-11-29] MEDS: Gabapentin 300 MG CAPSULE PO SCH ×2 (14:04→16:44)
--- NOTE | 2017-11-29 14:46 | Psychiatry Progress Note ---
Date of Encounter: 11/29/17 Time of Encounter: 14:44 Subjective Interval history: Patient seen for follow-up. Case discussed was nursing staff. She is more alert, not anxious, not labile. She denied any hallucinations, denies any problem with sleep. Not lethargic. Compliant with medication. Review of Systems Psychiatric: Reports: auditory hallucinations, visual hallucinations Results - Vital Signs Vital Signs: Temp Pulse Resp BP Pulse Ox 98.1 F 72 14 105/62 95 11/29/17 09:00 11/29/17 09:00 11/29/17 09:00 11/29/17 09:00 11/25/17 10:48 - Impressions ITS Impressions Head CT 11/26/17 23:55 IMPRESSION: No acute intracranial abnormality. Small posterior scalp hematoma. D/ / Joe Pederson MD / Joe Pederson MD Interpreting Provider: Joe Pederson MD Assessment and Plan (1) Altered mental status, unspecified Current visit: Yes Status: Acute Plan: Continue hospitalization, Close observation, Suicide Precautions per unit protocol, Encourage participation in unit milieu, Group Therapy, Monitor sleep, Monitor appetite Risks, benefits, side effects, alternatives discussed w/pt: Yes Patient agreeable to treatment: Yes Qualifiers: Qualified Code(s): R41.82 - Altered mental status, unspecified Consult Discharge Plan - Plan [facility]16/17 2:30 pm (The above appointment is with Sherlyn Amaya for outpatient mental health and substance abuse counseling services. Please complete and bring the [facility] intake packet you were provided at the hospital to this appointment. When you come to your first appointment, you will be meeting with business office staff, meeting with a counselor, and developing a treatment plan. You will receive follow- up appointments for on-going services, which could include community support, mental health and substance abuse counseling, groups/partial hospitalization programming and medication assisted treatment. You will also need to bring the following to your first appointment as well: 1) proof of household income (two consecutive pay stubs, social security award letter, bank statement, statement letter from [facility], child support statement, IRS 1040 or W2 form, or a statement from the person who financially supports you stating they help provide for your basic needs), 2) proof of residency (drivers license, a piece of mail showing your address, a statement from person you live with verifying you live at their address), 3) your social security card, 4) photo ID, 5) your insurance card (if you have commercial insurance you must call to obtain a prior authorization number before you arrive to your first appointment) and 6) if you do not have insurance but have applied for Medicaid, please bring verification you have applied. The above appointment(s) reflects first availability. You may contact the office regularly to check for cancellations that may allow you to be seen sooner.) Princess Macias [Advanced Practice Nurse] - 12/22/17 1:20 pm (The above appointment is with Princess Macias for primary healthcare and medication management services. The above appointment reflects first availability. You may contact the office on a regular basis to check for cancellations that may allow you to be seen sooner.) Psychiatry Exam - Constitutional Vitals: Temp Pulse Resp BP Pulse Ox 98.1 F 72 14 105/62 95 11/29/17 09:00 11/29/17 09:00 11/29/17 09:00 11/29/17 09:00 11/25/17 10:48 General appearance: age & developmentally appropriate, well-groomed, well- nourished - Musculoskeletal Gait: normal Station: relaxed Strength & Tone: normal for patient - Psychiatric Patient Orientation: Yes Person, Yes Time, Yes Place Level of alertness: Alert Behavior: calm, cooperative Psychomotor activity: Normal Eye Contact: Maintains Eye Contact Mood Description: Euthymic/stable Affect description: congruent with mood, full range Speech Volume: Normal Speech pattern: normal rate, normal rhythm, normal tone, fluent, spontaneous Language & Vocabulary: consistent with education Thought Process: Linear, Goal Oriented Thought Content: No Suicidal ideation, No Homicidal ideation, No Overt delusions Perceptual Disturbances: No Auditory hallucinations, No Visual hallucinations Attention Span Ability: Capable of Focused Attention Memory Description: Grossly Intact Patient Reliability: Reliable Historian Fund of knowledge: Yes abstraction ability, Yes aware of current events Intelligence Estimate: Average Judgment: Limited Insight: Partial
[2017-11-29] MEDS: traZODone 50 MG TABLET PO PRN (21:47)
[2017-11-30] MEDS: amLODIPine 5 MG TABLET PO SCH (09:00)
[2017-11-30] MEDS: Nicotine 14 MG PATCH.TD24 TD SCH (09:00)
[2017-11-30] MEDS: Baclofen 10 MG TABLET PO SCH ×3 (09:01→21:14)
[2017-11-30] MEDS: Cholecalciferol (D-3) 1,000 UNIT TABLET PO SCH (09:01)
--- NOTE | 2017-11-30 11:30 | Psychiatry Progress Note ---
Date of Encounter: 11/30/17 Time of Encounter: 10:30 Subjective Interval history: Patient seen for follow-up. Case discussed with nursing staff. She is alert, cooperative, denies any problem with sleep. Denies any hallucinations. No agitation or paranoia. Interactive and participated in activities. Staff report that family is concerned about her discharge plans and substance abuse treatment and social media marketing manager will evaluate its discharge options. Review of Systems Psychiatric: Reports: auditory hallucinations, visual hallucinations Results - Vital Signs Vital Signs: Temp Pulse Resp BP Pulse Ox 97.3 F L 80 16 136/93 95 11/30/17 08:57 11/30/17 08:57 11/30/17 08:57 11/30/17 08:57 11/25/17 10:48 - Impressions ITS Impressions Head CT 11/26/17 23:55 IMPRESSION: No acute intracranial abnormality. Small posterior scalp hematoma. D/ / Joe Pederson MD / Joe Pederson MD Interpreting Provider: Joe Pederson MD Assessment and Plan (1) Altered mental status, unspecified Current visit: Yes Status: Acute Plan: Continue hospitalization, Close observation, Suicide Precautions per unit protocol, Encourage participation in unit milieu, Group Therapy, Monitor sleep, Monitor appetite Risks, benefits, side effects, alternatives discussed w/pt: Yes Patient agreeable to treatment: Yes Qualifiers: Qualified Code(s): R41.82 - Altered mental status, unspecified Consult Discharge Plan - Plan [facility]16/17 2:30 pm (The above appointment is with Sherlyn Amaya for outpatient mental health and substance abuse counseling services. Please complete and bring the [facility] intake packet you were provided at the hospital to this appointment. When you come to your first appointment, you will be meeting with business office staff, meeting with a counselor, and developing a treatment plan. You will receive follow- up appointments for on-going services, which could include community support, mental health and substance abuse counseling, groups/partial hospitalization programming and medication assisted treatment. You will also need to bring the following to your first appointment as well: 1) proof of household income (two consecutive pay stubs, social security award letter, bank statement, statement letter from [facility], child support statement, IRS 1040 or W2 form, or a statement from the person who financially supports you stating they help provide for your basic needs), 2) proof of residency (drivers license, a piece of mail showing your address, a statement from person you live with verifying you live at their address), 3) your social security card, 4) photo ID, 5) your insurance card (if you have commercial insurance you must call to obtain a prior authorization number before you arrive to your first appointment) and 6) if you do not have insurance but have applied for Medicaid, please bring verification you have applied. The above appointment(s) reflects first availability. You may contact the office regularly to check for cancellations that may allow you to be seen sooner.) Princess Macias [Advanced Practice Nurse] - 12/22/17 1:20 pm (The above appointment is with Princess Macias for primary healthcare and medication management services. The above appointment reflects first availability. You may contact the office on a regular basis to check for cancellations that may allow you to be seen sooner.) Psychiatry Exam - Constitutional Vitals: Temp Pulse Resp BP Pulse Ox 97.3 F L 80 16 136/93 95 11/30/17 08:57 11/30/17 08:57 11/30/17 08:57 11/30/17 08:57 11/25/17 10:48 General appearance: age & developmentally appropriate, well-nourished, disheveled - Musculoskeletal Gait: normal Station: relaxed Strength & Tone: normal for patient - Psychiatric Patient Orientation: Yes Person, Yes Time, Yes Place Level of alertness: Alert Behavior: calm, cooperative Psychomotor activity: Normal Eye Contact: Maintains Eye Contact Mood Description: Euthymic/stable Affect description: congruent with mood, full range Speech Volume: Normal Speech pattern: normal rate, normal rhythm, normal tone, fluent, spontaneous Language & Vocabulary: consistent with education Thought Process: Linear, Goal Oriented Thought Content: No Suicidal ideation, No Homicidal ideation, No Overt delusions Perceptual Disturbances: No Auditory hallucinations, No Visual hallucinations Attention Span Ability: Capable of Focused Attention Memory Description: Grossly Intact Patient Reliability: Reliable Historian Fund of knowledge: Yes abstraction ability, Yes aware of current events Intelligence Estimate: Average Judgment: Limited Insight: Partial
[2017-11-30] MEDS: Gabapentin 300 MG CAPSULE PO SCH ×2 (11:49→16:36)
[2017-11-30] MEDS: traZODone 50 MG TABLET PO PRN (21:26)
[2017-11-30] MEDS: hydrOXYzine pamoate 25 MG CAPSULE PO PRN (21:26)
[2017-12-01] MEDS: Cholecalciferol (D-3) 1,000 UNIT TABLET PO SCH (08:49)
[2017-12-01] MEDS: Baclofen 10 MG TABLET PO SCH ×3 (08:50→20:38)
[2017-12-01] MEDS: amLODIPine 5 MG TABLET PO SCH (08:50)
[2017-12-01] MEDS: Nicotine 14 MG PATCH.TD24 TD SCH (08:53)
[2017-12-01] MEDS: Gabapentin 300 MG CAPSULE PO SCH ×2 (11:56→17:35)
--- NOTE | 2017-12-01 12:26 | Psychiatry Progress Note ---
Date of Encounter: 12/01/17 Time of Encounter: 12:20 Subjective Interval history: When I asked the patient was going on that she was admitted to the hospital, she told me "I had a breakdown last week. I was seeing things that was not there ". I asked if that happened her before, she stated "no". When I asked her if she was still experiencing those things, she said "no, they went away". She states that she does have a drug history and received inpatient treatment for opiate addiction. But states that she was not using drugs to cause the hallucinations. He urine drug screen was negative. She states that she did find some Xanax last month and took some of that, but denies taking on it a regular basis/not going through withdrawal. She is not sleeping as much with the decrease in her gabapentin dose and with her amytriptyline being discontinued. Her head is feeling fine after having gotten lightheaded and fallen early in her stay her on the unit. She states she has been on Paxil for 18 months for depression and anxiety and she finds it helpful. She has been stress lately having lost her job, but is feeling hopeful as she might be going back to work soon. She states that she has a problem with housing, but that she has someplace to go once discharge. She tells me that her mood is stable. She is not feeling depressed or anxious. She denies any suicidal/homicidal ideation. She denies any auditory or visual hallucination. She states that she sleeping better; feels well rested. She states that she is going to try decrease her caffeine intake, thinking that might have had something to do with what she experienced/hallucination. She is going to groups and is getting a lot out of her time here. She states that she feels that she will be fine to be discharged tomorrow or the next day depending on how things go with treatment. Review of Systems Psychiatric: Reports: auditory hallucinations, visual hallucinations Results - Vital Signs Vital Signs: Temp Pulse Resp BP Pulse Ox 98.2 F 74 16 117/73 95 12/01/17 09:00 12/01/17 09:00 12/01/17 09:00 12/01/17 09:00 11/25/17 10:48 - Impressions ITS Impressions Head CT 11/26/17 23:55 IMPRESSION: No acute intracranial abnormality. Small posterior scalp hematoma. D/ / Joe Pederson MD / Joe Pederson MD Interpreting Provider: Joe Pederson MD Assessment and Plan (1) Altered mental status, unspecified Current visit: Yes Status: Acute Plan: Continue hospitalization, Close observation, Encourage participation in unit milieu, Group Therapy Risks, benefits, side effects, alternatives discussed w/pt: Yes Patient agreeable to treatment: Yes Qualifiers: Altered mental status type: transient alteration of awareness Qualified Code(s): R40.4 - Transient alteration of awareness Consult Discharge Plan - Plan Referrals: Dorian Denise [Outside] - 12/16/17 2:30 pm (The above appointment is with Sherlyn Amaya for outpatient mental health and substance abuse counseling services. Please complete and bring the [facility] intake packet you were provided at the hospital to this appointment. When you come to your first appointment, you will be meeting with business office staff, meeting with a counselor, and developing a treatment plan. You will receive follow- up appointments for on-going services, which could include community support, mental health and substance abuse counseling, groups/partial hospitalization programming and medication assisted treatment. You will also need to bring the following to your first appointment as well: 1) proof of household income (two consecutive pay stubs, social security award letter, bank statement, statement letter from [facility], child support statement, IRS 1040 or W2 form, or a statement from the person who financially supports you stating they help provide for your basic needs), 2) proof of residency (drivers license, a piece of mail showing your address, a statement from person you live with verifying you live at their address), 3) your social security card, 4) photo ID, 5) your insurance card (if you have commercial insurance you must call to obtain a prior authorization number before you arrive to your first appointment) and 6) if you do not have insurance but have applied for Medicaid, please bring verification you have applied. The above appointment(s) reflects first availability. You may contact the office regularly to check for cancellations that may allow you to be seen sooner.) Princess Macias [Advanced Practice Nurse] - 12/22/17 1:20 pm (The above appointment is with Princess Macias for primary healthcare and medication management services. The above appointment reflects first availability. You may contact the office on a regular basis to check for cancellations that may allow you to be seen sooner.) Psychiatry Exam - Constitutional Vitals: Temp Pulse Resp BP Pulse Ox 98.2 F 74 16 117/73 95 12/01/17 09:00 12/01/17 09:00 12/01/17 09:00 12/01/17 09:00 11/25/17 10:48 General appearance: age & developmentally appropriate - Musculoskeletal Gait: normal Station: stiff Strength & Tone: normal for patient - Psychiatric Patient Orientation: Yes Person, Yes Time, Yes Place, Yes Circumstance Level of alertness: Alert Behavior: cooperative Psychomotor activity: Normal Eye Contact: Maintains Eye Contact Mood Description: Anxious (mildly) Affect description: congruent with mood Speech Volume: Normal Speech pattern: normal rate, normal rhythm, normal tone Language & Vocabulary: consistent with education Thought Process: Intact Thought Content: Yes Intact Attention Span Ability: Capable of Focused Attention Memory Description: Grossly Intact Patient Reliability: Questionable Historian Fund of knowledge: Yes abstraction ability Intelligence Estimate: Average Judgment: Fair Insight: Partial
[2017-12-01] MEDS: Acetaminophen 325 MG TABLET PO PRN (14:42)
[2017-12-01] MEDS: hydrOXYzine pamoate 25 MG CAPSULE PO PRN (20:37)
[2017-12-02] MEDS: Nicotine 14 MG PATCH.TD24 TD SCH (08:23)
[2017-12-02] MEDS: amLODIPine 5 MG TABLET PO SCH (08:25)
[2017-12-02] MEDS: Baclofen 10 MG TABLET PO SCH (08:25)
[2017-12-02] MEDS: Cholecalciferol (D-3) 1,000 UNIT TABLET PO SCH (08:25)
[2017-12-02 09:32] VITALS: BP 128/89
[2017-12-02] MEDS: Gabapentin 300 MG CAPSULE PO SCH (12:23)
--- NOTE | 2017-12-02 14:37 | Discharge Summary ---
Date of Encounter: 12/02/17 Time of Encounter: 14:30 Diagnosis - Discharge Diagnosis (1) Altered mental status, unspecified Status: Acute Qualifiers: Altered mental status type: transient alteration of awareness Qualified Code(s): R40.4 - Transient alteration of awareness Medications - Discharge Medications Prescriptions: Nicotine Patch [Nicoderm] 14 mg TD DAILY 30 Days #30 patch.td24 traZODone [TraZODone] 50 mg PO HS PRN 30 Days #30 tablet PRN Reason: Insomnia Atorvastatin [Lipitor] 10 mg PO HS 11/25/17 [History] Baclofen [Lioresal] 10 mg PO TID 11/25/17 [History] Buprenorphine HCl/Naloxone HCl [Buprenorphin-Naloxon 8-2 mg Sl] 1.5 tab SL QAM 11/25/17 [History] Cholecalciferol (D-3) [Vitamin D] 1,000 unit PO DAILY 11/25/17 [History] Gabapentin [Neurontin] 300 mg PO TID 11/25/17 [History] Metoprolol [Lopressor] 50 mg PO BID 11/25/17 [History] Omeprazole [PriLOSEC] 40 mg PO DAILY 11/25/17 [History] PARoxetine HCl [Paroxetine HCl] 40 mg PO DAILY 11/25/17 [History] amLODIPine [Norvasc] 5 mg PO DAILY 11/25/17 [History] hydrOXYzine pamoate [HydrOXYzine Pamoate] 25 - 50 mg PO Q6H PRN 11/25/17 [ History] Dicyclomine [Bentyl] 20 mg PO Q6H PRN capsule 12/02/17 [Rx] Nicotine Patch [Nicoderm] 14 mg TD DAILY 30 Days #30 patch.td24 12/02/17 [Rx] hydrOXYzine pamoate [HydrOXYzine Pamoate] 25 mg PO TID PRN capsule 12/02/17 [Rx ] traZODone [TraZODone] 50 mg PO HS PRN 30 Days #30 tablet 12/02/17 [Rx] 3 Allergy/AdvReac Type Severity Reaction Status Date / Time No Known Allergies Allergy Verified 09/05/17 09:41 Results Procedures and tests throughout hospitalization: Completed Lab Orders Category Date Time Status PTT [Activated Partial Thrombo Time] [COAG] Stat Lab 11/25/17 23:56 Completed Prothrombin Time INR [COAG] Stat Lab 11/25/17 23:56 Completed Completed Imaging Orders Category Date Time Status CT head/brain wo con [CT] Stat Cat Scan 11/26/17 23:55 Completed Provider Date of admission: 11/25/17 16:48 Primary care physician: PCP NONE Psychiatry Exam - Constitutional Vitals: Temp Pulse Resp BP Pulse Ox 98.2 F 74 16 128/89 95 12/02/17 09:00 12/02/17 09:00 12/02/17 09:00 12/02/17 09:00 11/25/17 10:48 General appearance: age & developmentally appropriate - Musculoskeletal Gait: normal Station: relaxed Strength & Tone: normal for patient - Psychiatric Patient Orientation: Yes Person, Yes Time, Yes Place, Yes Circumstance Level of alertness: Alert Behavior: calm Psychomotor activity: Normal Eye Contact: Maintains Eye Contact Mood Description: Euthymic/stable Affect description: congruent with mood Speech Volume: Normal Speech pattern: normal rate, normal rhythm, normal tone Language & Vocabulary: consistent with education Thought Process: Intact, Logical, Linear Thought Content: Yes Intact Attention Span Ability: Capable of Focused Attention Memory Description: Grossly Intact Patient Reliability: Reliable Historian Fund of knowledge: Yes abstraction ability Intelligence Estimate: Average Judgment: Good Insight: Full Hospital Course Hospital course: Ms. Dale is a 52 year old female who was admitted to after experiencing altered mental status. Her UDS was positive for THC, but nothing esle. She had a CT scan of the brain that was normal results. She was experiencing auditory hallucinations that resolved after 36 hour on the unit. Patient continued to state that she had never experienced this before and does not know what caused it. She is suspicious that her THC may have been laced with a media/instructional designer drug or something that caused her change in mentation. "I'm feeling okay now. I'm ready to go home." She had a great visit with her family last evening and has a great deal of support as an outpatient. She finds the Trazodone helpful with sleep and would like to continue it as a PRN when discharged. Her mood and thoughts are stable. She is alert and oriented. No SI/HI, A/V hallucinations. She has no complaints and will follow up with outpatient appointments and will let her medical team know if symptoms or alter mental status reoccurs. Time spent discussing smoking cessation with patient: 3 to 10 minutes Does patient wish to continue nicotine replacement upon disc: Yes (Continue Nicotine patches) - Time Spent with Patient Total time spent providing and/or coordinating discharge services: 20 min Less than 30 minutes Assessment and Plan - Patient/Caregiver Discharge Instructions Activity: resume usual activities as tolerated Diet: regular diet - Follow up Plan Follow up with: Dorian Kim Marvin Denise [Outside] - 12/16/17 2:30 pm (The above appointment is with Sherlyn Amaya for outpatient mental health and substance abuse counseling services. Please complete and bring the [facility] intake packet you were provided at the hospital to this appointment. When you come to your first appointment, you will be meeting with business office staff, meeting with a counselor, and developing a treatment plan. You will receive follow- up appointments for on-going services, which could include community support, mental health and substance abuse counseling, groups/partial hospitalization programming and medication assisted treatment. You will also need to bring the following to your first appointment as well: 1) proof of household income (two consecutive pay stubs, social security award letter, bank statement, statement letter from [facility], child support statement, IRS 1040 or W2 form, or a statement from the person who financially supports you stating they help provide for your basic needs), 2) proof of residency (drivers license, a piece of mail showing your address, a statement from person you live with verifying you live at their address), 3) your social security card, 4) photo ID, 5) your insurance card (if you have commercial insurance you must call to obtain a prior authorization number before you arrive to your first appointment) and 6) if you do not have insurance but have applied for Medicaid, please bring verification you have applied. The above appointment(s) reflects first availability. You may contact the office regularly to check for cancellations that may allow you to be seen sooner.) Princess Macias [Advanced Practice Nurse] - 12/22/17 1:20 pm (The above appointment is with Princess Macias for primary healthcare and medication management services. The above appointment reflects first availability. You may contact the office on a regular basis to check for cancellations that may allow you to be seen sooner.) Functional capacity at discharge: independent ambulation Overall status at discharge: Stable Disposition: Home, Self-Care Quality - Multiple Antipsychotics Patient discharged on 2 or more antipsychotic medications: No Procedures - Procedures Procedures: Medication Management, Crisis Stabilization, Supportive Therapy, Group Therapy, Psychoeducational Therapy
== END 2017-12-02 15:10 | disposition home or self-care (01) | DRG 52 ==
LOC: EMEROO 10:46 → 1ANU 16:48 → SUATTDRO 16:48 → 1ANU 18:12
PROVIDERS: ADMIT Psychiatry & Neurology Psychiatry; ATTEND Psychiatry & Neurology Psychiatry

== ENCOUNTER 2018-01-24 18:56 | Observation (INO) ==
--- NOTE | 2018-01-24 19:41 | Emergency Department Note ---
Disposition Clinical Impression: Altered mental status Qualifiers: Altered mental status type: somnolence Qualified Code(s): R40.0 - Somnolence Overdose Qualifiers: Encounter type: initial encounter Injury intent: intentional self-harm Qualified Code(s): T50.902A - Poisoning by unspecified drugs, medicaments and biological substances, intentional self-harm, initial encounter Disposition: Admitted As Inpatient General Adult [facility] - General Chief complaint: ED Altered Mental Status Stated complaint: AMS Time Seen by Provider: 01/24/18 19:01 Source: EMS Limitations: altered mental status - History of Present Illness Pain Scale: 0 - Related Data Home Medications Medication Instructions Recorded Confirmed Atorvastatin [Lipitor] 10 mg PO HS 11/25/17 11/25/17 Baclofen [Lioresal] 10 mg PO TID 11/25/17 11/25/17 Buprenorphine HCl/Naloxone HCl 1.5 tab SL QAM 11/25/17 11/25/17 [Buprenorphin-Naloxon 8-2 mg Sl] Cholecalciferol (D-3) [Vitamin D] 1,000 unit PO DAILY 11/25/17 11/25/17 Gabapentin [Neurontin] 300 mg PO TID 11/25/17 11/25/17 Metoprolol [Lopressor] 50 mg PO BID 11/25/17 11/25/17 Omeprazole [PriLOSEC] 40 mg PO DAILY 11/25/17 11/25/17 PARoxetine HCl [Paroxetine HCl] 40 mg PO DAILY 11/25/17 11/25/17 amLODIPine [Norvasc] 5 mg PO DAILY 11/25/17 11/25/17 hydrOXYzine pamoate [HydrOXYzine 25 - 50 mg PO Q6H PRN 11/25/17 11/25/17 Pamoate] Previous Rx's Medication Instructions Recorded Dicyclomine [Bentyl] 20 mg PO Q6H PRN capsule 12/02/17 Nicotine Patch [Nicoderm] 14 mg TD DAILY 30 Days #30 12/02/17 patch.td24 hydrOXYzine pamoate [HydrOXYzine 25 mg PO TID PRN capsule 12/02/17 Pamoate] traZODone [TraZODone] 50 mg PO HS PRN 30 Days #30 tablet 12/02/17 Allergies Allergy/AdvReac Type Severity Reaction Status Date / Time No Known Allergies Allergy Verified 09/05/17 09:41 Past Medical History - Past Medical History Medical history: Reports: hypertension Psychiatric history: Reports: schizophrenia - Social History Smoking Status: Current every day smoker Smokeless Tobacco Status: No Alcohol use: Reports: none Drug use: Reports: opiates, marijuana Physical Exam - General Limitations: altered mental status General appearance: alert, in no apparent distress Course - Reevaluation(s) Reevaluation #1: ATTESTATION NOTE I examined this patient and my medical decision-making was reviewed with the Resident Physician, Rayshawn Burkett. I agree with the documented findings, disposition and treatment plan as described except to the extent set forth below. I have personally performed a face to face evaluation on this patient. I have reviewed and agree with the care plan. Briefly: 52-year-old female by EMS for congestion and hearing voices. Patient took up to 11 of her Suboxone tablets and she is being treated for opioid addiction she has a pre-existing history of schizophrenia she sits hearing commanding voices. Patient is afebrile with stable vital signs signs of trauma patient will undergo laboratory evaluation and will be admitted for medical clearance and then she will be seen by mental health services. admission disposition pending Time: 19:35 Vital Signs Temperature 98.1 F 01/24/18 19:01 Pulse Rate 88 01/24/18 19:01 Respiratory Rate 16 01/24/18 19:01 Blood Pressure 109/64 01/24/18 19:01 O2 Sat by Pulse Oximetry 97 01/24/18 19:01 Temperature 98.1 F 01/24/18 19:01 Pulse Rate 88 01/24/18 19:01 Respiratory Rate 16 01/24/18 19:01 Blood Pressure 109/64 01/24/18 19:01 O2 Sat by Pulse Oximetry 97 01/24/18 19:01 Oxygen Delivery Oxygen Delivery Room Air
--- NOTE | 2018-01-24 19:44 | Emergency Department Note ---
Disposition Clinical Impression: Altered mental status Qualifiers: Altered mental status type: somnolence Qualified Code(s): R40.0 - Somnolence Overdose Qualifiers: Encounter type: initial encounter Injury intent: intentional self-harm Qualified Code(s): T50.902A - Poisoning by unspecified drugs, medicaments and biological substances, intentional self-harm, initial encounter Disposition: Admitted As Inpatient Condition: Fair Referrals: NONE,PCP [Primary Care Provider] - Forms: ED Satisfaction Letter Time of Disposition: 21:19 General Adult HPI - General Chief complaint: ED Altered Mental Status Stated complaint: AMS Time Seen by Provider: 01/24/18 19:01 Source: EMS Mode of arrival: EMS Limitations: altered mental status Nursing Notes Reviewed: Yes Vital Signs Reviewed: Yes - History of Present Illness HPI Narrative: Patient is a 52-year-old female with a past medical history of schizophrenia, bipolar, and Suboxone use presents to the emergency department by EMS for concerns for intentional overdose. According to darius patient is a daily Suboxone user and took 11 tablets of her Suboxone today. Patient was at her parent's house and her parents were concerned because the patient was examining suspicious behavior as if she was hallucinating and they noticed that her Suboxone container was empty. Patient admits to auditory hallucinations states that she can hear people talking to her not visibly present. She states that they are not telling her to harm herself or others and she denies any suicidal or homicidal ideation. She denies any other complaints at this time. Denies any other drug ingestion and does not admit to taking pulse Suboxone, states she only took one Suboxone and that she smoked marijuana earlier today. Denies fevers, chills, headache, vision changes, visual hallucinations, chest pain, shortness of breath, cough, abdominal pain, nausea, vomiting, weakness, numbness or tingling, dysuria, diarrhea or any other associated symptoms. Denies any other drug use or alcohol use. Pain Scale: 0 - Related Data Home Medications Medication Instructions Recorded Confirmed Atorvastatin [Lipitor] 10 mg PO HS 11/25/17 11/25/17 Baclofen [Lioresal] 10 mg PO TID 11/25/17 11/25/17 Buprenorphine HCl/Naloxone HCl 1.5 tab SL QAM 11/25/17 11/25/17 [Buprenorphin-Naloxon 8-2 mg Sl] Cholecalciferol (D-3) [Vitamin D] 1,000 unit PO DAILY 11/25/17 11/25/17 Gabapentin [Neurontin] 300 mg PO TID 11/25/17 11/25/17 Metoprolol [Lopressor] 50 mg PO BID 11/25/17 11/25/17 Omeprazole [PriLOSEC] 40 mg PO DAILY 11/25/17 11/25/17 PARoxetine HCl [Paroxetine HCl] 40 mg PO DAILY 11/25/17 11/25/17 amLODIPine [Norvasc] 5 mg PO DAILY 11/25/17 11/25/17 hydrOXYzine pamoate [HydrOXYzine 25 - 50 mg PO Q6H PRN 11/25/17 11/25/17 Pamoate] Previous Rx's Medication Instructions Recorded Dicyclomine [Bentyl] 20 mg PO Q6H PRN capsule 12/02/17 Nicotine Patch [Nicoderm] 14 mg TD DAILY 30 Days #30 12/02/17 patch.td24 hydrOXYzine pamoate [HydrOXYzine 25 mg PO TID PRN capsule 12/02/17 Pamoate] traZODone [TraZODone] 50 mg PO HS PRN 30 Days #30 tablet 12/02/17 Allergies Allergy/AdvReac Type Severity Reaction Status Date / Time No Known Allergies Allergy Verified 09/05/17 09:41 All systems ED: reviewed and negative except as stated. Review of Systems: As Per HPI Constitutional: Denies: fever, chills Cardiovascular: Denies: chest pain, palpitations, dyspnea on exertion Respiratory: Denies: cough, dyspnea, wheezes Gastrointestinal: Denies: abdominal pain, nausea, vomiting Genitourinary: Denies: urgency, dysuria Musculoskeletal: Denies: back pain, neck pain Integumentary: Denies: rash, abrasion Neurological: Denies: headache, weakness, numbness, paresthesias, confusion, abnormal gait, vertigo Psychiatric: Reports: auditory hallucinations. Denies: depression, suicidal thoughts, homicidal thoughts, visual hallucinations Past Medical History - Past Medical History Attestation: Yes The following information was validated with the patient. Medical history: Reports: hypertension Psychiatric history: Reports: schizophrenia - Social History Smoking Status: Current every day smoker Smokeless Tobacco Status: No Alcohol use: Reports: none Drug use: Reports: opiates, marijuana Physical Exam CONSTITUTIONAL: Alert and oriented X3, well-nourished, well appearing, in no apparent distress. HEAD: Normocephalic; atraumatic. EYES: PERRL, no scleral icterus. NOSE: The nose is normal in appearance without rhinorrhea RESP: Normal chest excursion with respiration; breath sounds clear and equal bilaterally; no wheezes, rhonchi, or rales CARD: Regular rhythm, without murmurs, rub or gallop ABD: Non-distended; non-tender, soft,without rigidity, rebound or guarding SKIN: Normal for age and race; warm and dry; no apparent lesions NEUROLOGICAL: Patient is alert and oriented times three. Cranial nerves III- XII are intact. Sensory and motor functions are intact. Strength is 5/5 for flexion and extension in all 4 extremities. Patellar DTRS are equal and intact. Finger to nose testing is equal and normal bilaterally. PSYCH: Denies SI or HI. Normal affect and mood. Admits to auditory hallucinations. Appears mildly paranoid. - General Limitations: altered mental status General appearance: alert, in no apparent distress Course Course Narrative: Plan this time is to evaluate the patient for altered mental status over undergo basic labs, EKG evaluation for any QRS or QT prolonging, as well as medical clearance for psychiatric evaluation. No head CT is indicated at this time given that the patient has no focal neurological deficits on exam. 21:09 - Patient labwork, EKG and CXR has returned and are normal/negative. Discussed these results with the patient. 21:17 - Discussed the patient case with Dr. Greenowod, hospitalist, and he agrees to accept the patient for medical clearance in the setting of drug ingestion will consult [facility]. Vital Signs Temperature 98.1 F 01/24/18 19:01 Pulse Rate 88 01/24/18 19:01 Respiratory Rate 16 01/24/18 19:01 Blood Pressure 109/64 01/24/18 19:01 O2 Sat by Pulse Oximetry 97 01/24/18 19:01 Temperature 98.1 F 01/24/18 19:01 Pulse Rate 88 01/24/18 19:01 Respiratory Rate 16 01/24/18 19:01 Blood Pressure 109/64 01/24/18 19:01 O2 Sat by Pulse Oximetry 97 01/24/18 19:01 Oxygen Delivery Oxygen Delivery Room Air Medical Decision Making - Medical Records Medical records reviewed: Yes I reviewed the patient's medical records. - Lab Data Lab results reviewed: Yes I reviewed the patient's lab results. Result diagrams: 01/24/18 19:50 01/24/18 19:50 Lab Results 01/24/18 01/24/18 01/24/18 Range/Units 19:50 19:50 19:50 WBC 6.4 (4.3-11.1) K/mcL RBC 3.74 L (3.82-4.97) M/mcL Hgb 11.1 L (11.5-15.4) g/dL Hct 33.1 L (35.3-44.9) % MCV 88.5 (83.0-100.0) fL MCH 29.7 (28.0-33.3) pg MCHC 33.5 (31.6-35.5) g/dL RDW 13.3 (11.5-14.5) % Plt Count 172 (140-400) K/mcL MPV 11.6 (9.4-12.4) fL Immature Gran % 0.2 (0-4) % Seg Neutrophils % 63.6 % Lymphocytes % 19.3 % Monocytes % 13.1 % Eosinophils % 3.0 % Basophils % 0.8 % Neutrophils # 4.1 (1.6-8.9) K/mcL Lymphocytes # 1.2 (0.6-4.6) K/mcL Monocytes # 0.8 (0.0-1.3) K/mcL Eosinophils # 0.2 (0.0-0.6) K/mcL Basophils # 0.1 (0.0-0.2) K/mcL Sodium 134 L (136-145) mEq/L Potassium 3.4 L (3.5-5.1) mEq/L Chloride 101 (98-107) mEq/L Carbon Dioxide 29 (23-29) mEq/L BUN 15 (6-20) mg/dL Creatinine 1.02 (0.60-1.20) mg/dL Est GFR ( Amer) > 60 (> 60) Est GFR (Non-Af Amer) 57 L (> 60) BUN/Creatinine Ratio 15 (6-26) Glucose 105 (70-105) mg/dL Calculated Osmolality 279 L (280-300) Calcium 9.5 (8.6-10.3) mg/dL Total Bilirubin 0.6 (0.3-1.0) mg/dL Direct Bilirubin 0.1 (0.0-0.2) mg/dL Indirect Bilirubin 0.5 (0.0-1.2) mg/dL AST 17 (13-39) Units/L ALT 16 (7-52) Units/L Alkaline Phosphatase 71 (34-104) Units/L Serum Total Protein 7.0 (6.4-8.9) g/dL Albumin 4.6 (3.5-5.7) g/dL Globulin 2.4 (2.4-3.5) g/dL Albumin/Globulin Ratio 1.9 (1.1-2.2) Urine Color (Yellow) Urine Clarity (Clear) Urine pH (5.0-8.0) pH Units Ur Specific [place] (1.010-1.025) Urine Protein (Neg-Trace) mg/dL Urine Glucose (UA) (Normal) mg/dL Urine Ketones (Negative) mg/dL Urine Blood (Negative) Urine Nitrite (Negative) Urine Bilirubin (Negative) Urine Urobilinogen (Normal) mg/dL Ur Leukocyte Esterase (Negative) Urine Microscopic RBC (0-3) per hpf Urine Microscopic WBC (0-3) per hpf Ur Squamous Epith Cells (None-Few) per lpf Urine Bacteria (None-Few) per hpf Hyaline Casts (None-Few) per lpf Ur Culture Indicated? (NO) Salicylates < 2.5 L (15.0-30.0) mg/dL Urine Opiates Screen (Mjorrf=586) ng/mL Acetaminophen < 10 L (10-20) mcg/mL Ur Barbiturates Screen (Imjhof=197) ng/mL Ur Phencyclidine Scrn (Cutoff=25) ng/mL Ur Amphetamines Screen (Esztab=2342) ng/mL U Benzodiazepines Scrn (Dzpsqv=340) ng/mL Urine Cocaine Screen (Cutoff= 300) ng/mL U Marijuana (THC) Screen (Cutoff = 50) ng/mL Ur Drug Screen Interp Ethyl Alcohol < 10 (Less than 10) mg/dL 01/24/18 01/24/18 Range/Units 19:57 19:57 WBC (4.3-11.1) K/mcL RBC (3.82-4.97) M/mcL Hgb (11.5-15.4) g/dL Hct (35.3-44.9) % MCV (83.0-100.0) fL MCH (28.0-33.3) pg MCHC (31.6-35.5) g/dL RDW (11.5-14.5) % Plt Count (140-400) K/mcL MPV (9.4-12.4) fL Immature Gran % (0-4) % Seg Neutrophils % % Lymphocytes % % Monocytes % % Eosinophils % % Basophils % % Neutrophils # (1.6-8.9) K/mcL Lymphocytes # (0.6-4.6) K/mcL Monocytes # (0.0-1.3) K/mcL Eosinophils # (0.0-0.6) K/mcL Basophils # (0.0-0.2) K/mcL Sodium (136-145) mEq/L Potassium (3.5-5.1) mEq/L Chloride (98-107) mEq/L Carbon Dioxide (23-29) mEq/L BUN (6-20) mg/dL Creatinine (0.60-1.20) mg/dL Est GFR ( Amer) (> 60) Est GFR (Non-Af Amer) (> 60) BUN/Creatinine Ratio (6-26) Glucose (70-105) mg/dL Calculated Osmolality (280-300) Calcium (8.6-10.3) mg/dL Total Bilirubin (0.3-1.0) mg/dL Direct Bilirubin (0.0-0.2) mg/dL Indirect Bilirubin (0.0-1.2) mg/dL AST (13-39) Units/L ALT (7-52) Units/L Alkaline Phosphatase (34-104) Units/L Serum Total Protein (6.4-8.9) g/dL Albumin (3.5-5.7) g/dL Globulin (2.4-3.5) g/dL Albumin/Globulin Ratio (1.1-2.2) Urine Color Yellow (Yellow) Urine Clarity Clear (Clear) Urine pH 6.5 (5.0-8.0) pH Units Ur Specific [place] 1.007 L (1.010-1.025) Urine Protein Negative (Neg-Trace) mg/dL Urine Glucose (UA) Normal (Normal) mg/dL Urine Ketones Negative (Negative) mg/dL Urine Blood Negative (Negative) Urine Nitrite Negative (Negative) Urine Bilirubin Negative (Negative) Urine Urobilinogen Normal (Normal) mg/dL Ur Leukocyte Esterase Small H (Negative) Urine Microscopic RBC 0-3 (0-3) per hpf Urine Microscopic WBC 3-5 H (0-3) per hpf Ur Squamous Epith Cells Many H (None-Few) per lpf Urine Bacteria Few (None-Few) per hpf Hyaline Casts None Seen (None-Few) per lpf Ur Culture Indicated? NO. A (NO) Salicylates (15.0-30.0) mg/dL Urine Opiates Screen Negative (Qnlsnk=993) ng/mL Acetaminophen (10-20) mcg/mL Ur Barbiturates Screen Negative (Jvhcbl=790) ng/mL Ur Phencyclidine Scrn Negative (Cutoff=25) ng/mL Ur Amphetamines Screen Negative (Xeaqtr=6235) ng/mL U Benzodiazepines Scrn Negative (Gcmyqc=753) ng/mL Urine Cocaine Screen Negative (Cutoff= 300) ng/mL U Marijuana (THC) Screen Negative (Cutoff = 50) ng/mL Ur Drug Screen Interp See Below Ethyl Alcohol (Less than 10) mg/dL - Radiology Data Radiology results reviewed: Yes I reviewed the patient's radiology results. Chest X-Ray 01/24/18 19:13 IMPRESSION: No acute cardiopulmonary abnormality. D/ / Darian Nunez / Darian Nunez Interpreting Provider: Darian Nunez - EKG Data EKG #1 EKG attestation: Yes I reviewed and interpreted this EKG. EKG results narrative: EKG done at 19:43 shows sinus rhythm at a rate of 80 bpm. First-degree AV block. Normal axis. CA is widened, QRS QT and QTC are within normal limits. No signs of ST elevation, ST depression or Q waves present.
[2018-01-24 20:24] LABS: Basophils # 0.1 K/mcL (0.0-0.2); Basophils % 0.8 %; Eosinophils # 0.2 K/mcL (0.0-0.6); Hematocrit 33.1 % (35.3-44.9); Hemoglobin 11.1 g/dL (11.5-15.4); Immature Granulocytes % 0.2 % (0-4); Lymphocytes # 1.2 K/mcL (0.6-4.6); Lymphocytes % 19.3 %; Mean Corpuscular HGB Conc 33.5 g/dL (31.6-35.5); Mean Corpuscular Hemoglobin 29.7 pg (28.0-33.3); Mean Corpuscular Volume 88.5 fL (83.0-100.0); Mean Platelet Volume 11.6 fL (9.4-12.4); Monocytes # 0.8 K/mcL (0.0-1.3); Monocytes % 13.1 %; Neutrophils # 4.1 K/mcL (1.6-8.9); Platelet Count 172 K/mcL (140-400); Red Blood Count 3.74 M/mcL (3.82-4.97); Red Cell Distribution Width 13.3 % (11.5-14.5); Segmented Neutrophils % 63.6 %
[2018-01-24 20:27] LABS: Bilirubin,Urine Negative (Negative); Blood,Urine Negative (Negative); Clarity,Urine Clear (Clear); Color,Urine Yellow (Yellow); Glucose,Urine (UA) Normal (Normal); Ketones,Urine Negative (Negative); Leukocyte Esterase,Urine Small (Negative); Nitrite,Urine Negative (Negative); PH,Urine 6.5 pH Units (5.0-8.0); Protein,Urine Negative (Neg-Trace); Specific Gravity,Urine 1.007 (1.010-1.025); Urobilinogen,Urine Normal (Normal)
[2018-01-24 20:29] LABS: Bacteria,Urine Few per hpf (None-Few); Hyaline Casts,Urine None Seen per lpf (None-Few); RBC,Urine 0-3 per hpf (0-3); Squamous Epithelial Cell,Urine Many per lpf (None-Few)
[2018-01-24 20:36] LABS: Amphetamine Screen,Urine Negative ng/mL (Cutoff=1000); Barbiturate Screen,Urine Negative ng/mL (Cutoff=200); Benzodiazepines Screen,Urine Negative ng/mL (Cutoff=200); Cannabinoid Screen,Urine Negative ng/mL (Cutoff = 50); Cocaine Screen,Urine Negative ng/mL (Cutoff= 300); Opiate Screen,Urine Negative ng/mL (Cutoff=300); Phencyclidine Screen,Urine Negative ng/mL (Cutoff=25)
[2018-01-24 20:43] LABS: Acetaminophen < 10 mcg/mL (10-20); Alanine Aminotransferase 16 Units/L (7-52); Albumin 4.6 g/dL (3.5-5.7); Albumin/Globulin Ratio 1.9 (1.1-2.2); Alkaline Phosphatase 71 Units/L (34-104); Aspartate Amino Transferase 17 Units/L (13-39); BUN/Creatinine Ratio 15 (6-26); Bilirubin,Direct 0.1 mg/dL (0.0-0.2); Bilirubin,Indirect 0.5 mg/dL (0.0-1.2); Bilirubin,Total 0.6 mg/dL (0.3-1.0); Blood Urea Nitrogen 15 mg/dL (6-20); Calcium 9.5 mg/dL (8.6-10.3); Carbon Dioxide 29 mEq/L (23-29); Chloride 101 mEq/L (98-107); Ethanol < 10 mg/dL (Less than 10); Globulin 2.4 g/dL (2.4-3.5); Glucose 105 mg/dL (70-105); Osmolality,Calculated 279 (280-300); Potassium 3.4 mEq/L (3.5-5.1); Salicylate < 2.5 mg/dL (15.0-30.0); Sodium 134 mEq/L (136-145); eGFR For Non-African Americans 57 (> 60)
[2018-01-24] MEDS ORDERED: 0.9 % Sodium Chloride 1,000 ML IVC SCH (23:45)
[2018-01-25] MEDS ORDERED: cefTRIAXone 1,000 MG in Water for inj. (sterile) 20 ML 10 ML IVPB SCH
[2018-01-25] MEDS ORDERED: Naloxone 0.4 MG/ML INJ IVP PRN (01:35)
[2018-01-25] MEDS ORDERED: Acetaminophen 325 MG TABLET PO PRN (01:35)
--- NOTE | 2018-01-25 04:56 | Internal Med History&Physical ---
Date of Encounter: 01/24/18 Time of Encounter: 23:47 Internal Medicine - H&P: HPI Chief complaint: Suboxone overdose Admitted From: Home Plans for Post Hospital Care: Transfer Psych Facility History of present illness: Ms. James is a 52 year old female with PMH of bipolar disorder and questionable schizophrenia who presented to ED today via EMS for concern of drug overdose with suboxone. Patient is very somnolent at this time. She can be easily arouse, but she is not cooperative and falls back asleep. I am able to get no history from her. All history is from chart review of ED records. Patient was at her parent's house when her parents were concerned that she was exhibiting suspicious behavior as if she was hallucinating and they noticed that her Suboxone container was empty. Patient admitted to auditory hallucinations in the ED. She denied SI/HI in the ED. She told ED physician that she only took one Suboxone and that she smoked marijuana earlier today. In the ED, she denied fevers, chills, headache, vision changes, visual hallucinations, chest pain, shortness of breath, cough, abdominal pain, nausea, vomiting, weakness, numbness or tingling, dysuria, diarrhea or any other associated symptoms. She also denied any other drug use or alcohol use. Labwork was remarkable for hypokalemia to 3.4. UA was mild leukocyte esterase. UDS was negative. ED physician consulted 1A, who states that patient needs to be medical clear for 12 hours from the suboxone overdose prior to transfer to . Past Med Surg Social Fam HX - Past Medical History Source: unable to obtain, old records reviewed Medical history: GERD, hyperlipidemia, hypertension, other (Nicotine Dependence) Additional medical history: Patient denies having any other medical history other than HTN Psychiatric history: bipolar, schizophrenia - Past Surgical History Additional surgical history: Unable to obtain due to patient condition of somnolence. - Social History Smoking Status: Current every day smoker Smokeless Tobacco Status: No Alcohol use: none Drug use: opiates, marijuana - Additional Family History Additional family history: Unable to obtain family history from patient due to patient condition of somnolence. Internal Medicine - H&P: Meds Atorvastatin [Lipitor] 10 mg PO HS 11/25/17 [History] Baclofen [Lioresal] 10 mg PO TID 11/25/17 [History] Buprenorphine HCl/Naloxone HCl [Buprenorphin-Naloxon 8-2 mg Sl] 1.5 tab SL QAM 11/25/17 [History] Cholecalciferol (D-3) [Vitamin D] 1,000 unit PO DAILY 11/25/17 [History] Gabapentin [Neurontin] 300 mg PO TID 11/25/17 [History] Metoprolol [Lopressor] 50 mg PO BID 11/25/17 [History] Omeprazole [PriLOSEC] 40 mg PO DAILY 11/25/17 [History] PARoxetine HCl [Paroxetine HCl] 40 mg PO DAILY 11/25/17 [History] amLODIPine [Norvasc] 5 mg PO DAILY 11/25/17 [History] hydrOXYzine pamoate [HydrOXYzine Pamoate] 25 - 50 mg PO Q6H PRN 11/25/17 [ History] Dicyclomine [Bentyl] 20 mg PO Q6H PRN capsule 12/02/17 [Rx] Nicotine Patch [Nicoderm] 14 mg TD DAILY 30 Days #30 patch.td24 12/02/17 [Rx] hydrOXYzine pamoate [HydrOXYzine Pamoate] 25 mg PO TID PRN capsule 12/02/17 [Rx ] traZODone [TraZODone] 50 mg PO HS PRN 30 Days #30 tablet 12/02/17 [Rx] 3 Allergy/AdvReac Type Severity Reaction Status Date / Time No Known Allergies Allergy Verified 09/05/17 09:41 All Systems PM: Unable to perform due to patient condition of somnolence. - Constitutional Vitals: Temp Pulse Resp BP Pulse Ox 98.8 F 82 18 132/81 92 01/25/18 04:29 01/25/18 04:29 01/25/18 04:29 01/25/18 04:29 01/25/18 04:29 General appearance: Present: A&O X 0, no acute distress. Absent: cooperative, answers questions appropriately Exam: Somnolent - Head Head exam: Present: atraumatic, normocephalic - Eye Eye exam: Present: EOMI, PERRL. Absent: conjunctival injection, scleral icterus - ENT ENT exam: Present: mucous membranes moist, normal external ear exam, normal oropharynx - Neck Neck exam general surgery: Present: supple, trachea midline. Absent: lymphadenopathy, tenderness, thyromegaly - Respiratory Respiratory exam: Present: CTAB. Absent: accessory muscle use, rales, rhonchi, wheezes Additional comments: Normal WOB - Cardiovascular Cardiovascular exam: Present: RRR, +S1, +S2. Absent: diastolic murmur, gallop, rubs, systolic murmur Additional comments: No BLE edema - GI/Abdominal GI/Abdominal exam: Present: normal bowel sounds, soft. Absent: distended, hepatomegaly, mass, splenomegaly, tenderness - Neurological Exam Additional comments: Unable to perform due to patient condition of somnolence. - Psychiatric Additional comments: Unable to perform due to patient condition of somnolence. - Skin Skin exam: Present: dry, intact, warm. Absent: cyanosis, rash Internal Med - H&P Results - Labs CBC & Chem 7: 01/24/18 19:50 01/24/18 19:50 - Assessment and plan (1) Overdose Current Visit: Yes Status: Acute Assessment and plan: Suboxone overdose. Admit for observation with telemetry. Obtain blood drug screen in AM. Unsure if this was intentional suicide attempt or accidental ingestion. Patient has history of bipolar disorder, and was having hallucinations earlier today. Start 1-on-1 sitter. Patient very somnolent at this time. Hydrate gently with IV NS at 75 ml/hr. Neurochecks Q4H. NPO until more awake. Consult psychiatry in AM for transfer to [facility] inpatient psychiatry. They stated that patient needs to be observed for 12 hours for the suboxone overdose, and then medically cleared to transfer to . Qualifiers: Encounter type: initial encounter Injury intent: undetermined intent Qualified Code(s): T50.904A - Poisoning by unspecified drugs, medicaments and biological substances, undetermined, initial encounter (2) Acute psychosis Current Visit: Yes Status: Acute Assessment and plan: History of bipolar disorder. Will consult psychiatry as per above. (3) Hypokalemia Current Visit: Yes Status: Acute Assessment and plan: Give KCl 40 mEq PO once. Recheck BMP in AM. (4) UTI (urinary tract infection) Current Visit: Yes Status: Acute Assessment and plan: Obtain urine culture. Start rocephin 1 gram IV QD. Qualifiers: Urinary tract infection type: acute cystitis Hematuria presence: without hematuria Qualified Code(s): N30.00 - Acute cystitis without hematuria (5) Bipolar disorder Current Visit: Yes Status: Chronic Assessment and plan: Consult psychiatry in AM as per above. Continue home medications after verification. Qualifiers: Active/Remission status: remission status unspecified Qualified Code(s): F31.9 - Bipolar disorder, unspecified (6) HTN (hypertension) Current Visit: Yes Status: Chronic Assessment and plan: Continue home medications after verification. Qualifiers: Hypertension type: essential hypertension Qualified Code(s): I10 - Essential (primary) hypertension (7) HLD (hyperlipidemia) Current Visit: Yes Status: Chronic Assessment and plan: Continue home medications after verification. Qualifiers: Hyperlipidemia type: mixed hyperlipidemia Qualified Code(s): E78.2 - Mixed hyperlipidemia (8) Nicotine dependence Current Visit: Yes Status: Acute Assessment and plan: Continue home medications after verification. Qualifiers: Nicotine product type: cigarettes Substance use status: uncomplicated Qualified Code(s): F17.210 - Nicotine dependence, cigarettes, uncomplicated (9) GERD (gastroesophageal reflux disease) Current Visit: Yes Status: Chronic Assessment and plan: Continue home medications after verification. Qualifiers: Esophagitis presence: without esophagitis Qualified Code(s): K21.9 - Gastro -esophageal reflux disease without esophagitis (10) DVT prophylaxis Current Visit: Yes Status: Acute Assessment and plan: Start SCDs and lovenox 40 mg SQ QD. - Time Spent With Patient Total time spent is greater than 50% in coordination of care (as documented) at patient's floor/unit and/or counseling patient: less than 15 minutes
[2018-01-25] MEDS ORDERED: *HR* Enoxaparin 40 MG/0.4 ML SYRINGE SQ SCH (06:00)
[2018-01-25 06:22] LABS: Basophils # 0.1 K/mcL (0.0-0.2); Basophils % 1.1 %; Eosinophils # 0.2 K/mcL (0.0-0.6); Eosinophils % 4.4 %; Hematocrit 35.6 % (35.3-44.9); Immature Granulocytes % 0.2 % (0-4); Lymphocytes % 20.3 %; Mean Corpuscular HGB Conc 33.7 g/dL (31.6-35.5); Mean Corpuscular Hemoglobin 29.9 pg (28.0-33.3); Mean Corpuscular Volume 88.8 fL (83.0-100.0); Mean Platelet Volume 11.1 fL (9.4-12.4); Monocytes # 0.7 K/mcL (0.0-1.3); Monocytes % 15.5 %; Neutrophils # 2.8 K/mcL (1.6-8.9); Platelet Count 151 K/mcL (140-400); Red Blood Count 4.01 M/mcL (3.82-4.97); Red Cell Distribution Width 13.4 % (11.5-14.5); Segmented Neutrophils % 58.5 %
[2018-01-25 06:41] LABS: BUN/Creatinine Ratio 14 (6-26); Blood Urea Nitrogen 11 mg/dL (6-20); Calcium 9.2 mg/dL (8.6-10.3); Carbon Dioxide 30 mEq/L (23-29); Chloride 104 mEq/L (98-107); Glucose 100 mg/dL (70-105); Magnesium 1.9 mg/dL (1.6-2.6); Osmolality,Calculated 283 (280-300); Potassium 3.7 mEq/L (3.5-5.1); Sodium 137 mEq/L (136-145); eGFR For Non-African Americans > 60 (> 60)
[2018-01-25] MEDS ORDERED: traZODone 50 MG TABLET PO PRN (10:39)
[2018-01-25] MEDS ORDERED: hydrOXYzine pamoate 25 MG CAPSULE PO PRN (10:39)
[2018-01-25] MEDS ORDERED: amLODIPine 5 MG TABLET PO SCH (10:45)
[2018-01-25] MEDS: Gabapentin 300 MG CAPSULE PO SCH ×2 (12:14→16:16)
[2018-01-25 12:21] VITALS: BP 150/82
--- NOTE | 2018-01-25 12:51 | Consult Note ---
Date of Encounter: 01/25/18 Time of Encounter: 12:42 Assessment & Recommendation (1) Acute psychosis Current visit: Yes Status: Acute Assessment & Recommendation: Client offered inpatient admission but she refused. Not meeting criteria for involuntary admission today. Denies SI. No history of attempts. Tox screen negative. History of brief psychotic episodes but clear today when speaking with this customs entry writer. If she remains in the hospital would recommend starting low dose Risperdal or Haldol to see if it helps. May have an underlying psychotic depression that is undertreated. Recommend she follow up with an outpatient psychiatrist and therapist. May also want to review home medications. Client stated she takes multiple meds at home that are anticholinergic in nature. It' s possible that the combination is too much for her and contributing to her confusion. History of Present Illness Requesting Physician: Marcellus Anderson MD Reason for consult: AMS History of present illness: Ms. James is a 52 year old female who was admitted secondary to a mental status change at home. Family concerned she may have overdosed on her Suboxone. Tox screen negative in ER. Client states she takes her Suboxone and uses THC but negative for both. Formerly addicted to pain pills. Client states she has been on Suboxone for five years. She has had relapses but the last one was in May 2017. Client states she has had periods of confusion at home. Hospitalized once on [facility] secondary to confusion. 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 She is sleepy today but otherwise clear. Client states she remembers that she was confused at home but no longer feels that way. May have had another brief psychotic episode. May also have a psychotic depression as client reports she takes Paxil at home for depression and anxiety. Denies SI. Denies any history of suicide attempts. Denies any mental health hospitalizations other than the one for brief psychosis. Client is adamant she does not want to return to [facility]. Willing to follow up with a psychiatrist on an outpatient basis. Has seen psychiatrists in the past as she has been on medication for depression and anxiety for 25 years. Not linked currently and gets meds from PCP. Given repeat psychotic episode would recommend she follow with a psychiatrist and therapist again. Inpatient hospitalization offered but client refused. Not meeting criteria today for involuntary hospitalization but she should be followed by specialists. Lives with family so she has support at home. CC: Marcellus Anderson MD Past Med Surg Social Fam HX - Past Medical History Medical history: GERD, hyperlipidemia, hypertension, other (Nicotine Dependence) - Past Psychiatric History Psychiatric history: Reports: anxiety, depression, previous psychiatric hospitalization Family psychiatric history: Unknown Family History of Suicide: Unknown - Social History Smoking Status: Current every day smoker Smokeless Tobacco Status: No Alcohol use: none Drug use: opiates, marijuana Medications & Allergies Atorvastatin [Lipitor] 10 mg PO HS 11/25/17 [History] Baclofen [Lioresal] 10 mg PO TID 11/25/17 [History] Buprenorphine HCl/Naloxone HCl [Buprenorphin-Naloxon 8-2 mg Sl] 1.5 tab SL QAM 11/25/17 [History] Cholecalciferol (D-3) [Vitamin D] 1,000 unit PO DAILY 11/25/17 [History] Gabapentin [Neurontin] 300 mg PO QID 11/25/17 [History] Metoprolol [Lopressor] 50 mg PO BID 11/25/17 [History] Omeprazole [PriLOSEC] 40 mg PO DAILY 11/25/17 [History] PARoxetine HCl [Paroxetine HCl] 40 mg PO DAILY 11/25/17 [History] amLODIPine [Norvasc] 5 mg PO DAILY 11/25/17 [History] hydrOXYzine pamoate [HydrOXYzine Pamoate] 25 - 50 mg PO Q6H PRN 11/25/17 [ History] traZODone [TraZODone] 50 mg PO HS PRN 30 Days #30 tablet 12/02/17 [Rx] Amitriptyline [Elavil] 25 mg PO HS 01/25/18 [History] Buspirone HCl [Buspar] 5 mg PO BID 01/25/18 [History] Hydrochlorothiazide [Microzide] 12.5 mg PO DAILY 01/25/18 [History] 3 Allergy/AdvReac Type Severity Reaction Status Date / Time No Known Allergies Allergy Verified 09/05/17 09:41 Review of Systems Constitutional: Denies: fever, chills, weakness, weight change Eyes: Denies: eye pain, vision change Ears, Nose, Throat: Denies: ear pain, throat pain, dental pain, hearing loss, congestion Cardiovascular: Denies: chest pain, palpitations, dyspnea on exertion Respiratory: Denies: cough, dyspnea, wheezes Gastrointestinal: Denies: abdominal pain, nausea, vomiting, diarrhea, constipation Genitourinary female: Denies: urgency, dysuria, frequency, abnormal menses, dyspareunia Musculoskeletal: Denies: joint swelling, joint pain Integumentary: Denies: rash, lesions, pruritus Neurological: Denies: headache, weakness, numbness, memory loss Endocrine: Denies: fatigue, heat or cold intolerance Hematologic/Lymphatic: Denies: easy bruising, lymphadenopathy Allergic/Immunologic: Denies: urticaria, itchy eyes Psychiatry Exam - Constitutional Vitals: Temp Pulse Resp BP Pulse Ox 98.1 F 87 16 150/82 92 01/25/18 12:15 01/25/18 12:15 01/25/18 12:15 01/25/18 12:15 01/25/18 12:15 General appearance: age & developmentally appropriate - Musculoskeletal Gait: normal Station: relaxed Strength & Tone: normal for patient - Psychiatric Patient Orientation: Yes Person, Yes Time, Yes Place Level of alertness: Alert Behavior: calm, cooperative Psychomotor activity: Normal Eye Contact: Maintains Eye Contact Mood Description: Depressed, Anxious Affect description: congruent with mood Speech Volume: Normal Speech pattern: normal rate, normal rhythm, normal tone, fluent, spontaneous Language & Vocabulary: consistent with education Thought Process: Linear Thought Content: No Suicidal ideation, No Homicidal ideation, No Overt delusions Perceptual Disturbances: No Auditory hallucinations, No Visual hallucinations Attention Span Ability: Capable of Focused Attention Memory Description: Grossly Intact Patient Reliability: Questionable Historian Fund of knowledge: Yes abstraction ability, Yes aware of current events Intelligence Estimate: Average Judgment: Fair Insight: Partial Results - Labs Labs: Laboratory Last Values WBC 4.7 K/mcL (4.3-11.1) 01/25/18 06:10 RBC 4.01 M/mcL (3.82-4.97) 01/25/18 06:10 Hgb 12.0 g/dL (11.5-15.4) 01/25/18 06:10 Hct 35.6 % (35.3-44.9) 01/25/18 06:10 MCV 88.8 fL (83.0-100.0) 01/25/18 06:10 MCH 29.9 pg (28.0-33.3) 01/25/18 06:10 MCHC 33.7 g/dL (31.6-35.5) 01/25/18 06:10 RDW 13.4 % (11.5-14.5) 01/25/18 06:10 Plt Count 151 K/mcL (140-400) 01/25/18 06:10 MPV 11.1 fL (9.4-12.4) 01/25/18 06:10 Immature Gran % 0.2 % (0-4) 01/25/18 06:10 Seg Neutrophils % 58.5 % 01/25/18 06:10 Lymphocytes % 20.3 % 01/25/18 06:10 Monocytes % 15.5 % 01/25/18 06:10 Eosinophils % 4.4 % 01/25/18 06:10 Basophils % 1.1 % 01/25/18 06:10 Neutrophils # 2.8 K/mcL (1.6-8.9) 01/25/18 06:10 Lymphocytes # 1.0 K/mcL (0.6-4.6) 01/25/18 06:10 Monocytes # 0.7 K/mcL (0.0-1.3) 01/25/18 06:10 Eosinophils # 0.2 K/mcL (0.0-0.6) 01/25/18 06:10 Basophils # 0.1 K/mcL (0.0-0.2) 01/25/18 06:10 Sodium 137 mEq/L (136-145) 01/25/18 06:10 Potassium 3.7 mEq/L (3.5-5.1) 01/25/18 06:10 Chloride 104 mEq/L (98-107) 01/25/18 06:10 Carbon Dioxide 30 mEq/L (23-29) H 01/25/18 06:10 BUN 11 mg/dL (6-20) 01/25/18 06:10 Creatinine 0.76 mg/dL (0.60-1.20) 01/25/18 06:10 Est GFR ( Amer) > 60 (> 60) 01/25/18 06:10 Est GFR (Non-Af Amer) > 60 (> 60) 01/25/18 06:10 BUN/Creatinine Ratio 14 (6-26) 01/25/18 06:10 Glucose 100 mg/dL (70-105) 01/25/18 06:10 POC Glucose 122 mg/dL (70-99) H 01/24/18 19:13 Calculated Osmolality 283 (280-300) 01/25/18 06:10 Calcium 9.2 mg/dL (8.6-10.3) 01/25/18 06:10 Magnesium 1.9 mg/dL (1.6-2.6) 01/25/18 06:10 Total Bilirubin 0.6 mg/dL (0.3-1.0) 01/24/18 19:50 Direct Bilirubin 0.1 mg/dL (0.0-0.2) 01/24/18 19:50 Indirect Bilirubin 0.5 mg/dL (0.0-1.2) 01/24/18 19:50 AST 17 Units/L (13-39) 01/24/18 19:50 ALT 16 Units/L (7-52) 01/24/18 19:50 Alkaline Phosphatase 71 Units/L (34-104) 01/24/18 19:50 Serum Total Protein 7.0 g/dL (6.4-8.9) 01/24/18 19:50 Albumin 4.6 g/dL (3.5-5.7) 01/24/18 19:50 Globulin 2.4 g/dL (2.4-3.5) 01/24/18 19:50 Albumin/Globulin Ratio 1.9 (1.1-2.2) 01/24/18 19:50 Urine Color Yellow (Yellow) 01/24/18 19:57 Urine Clarity Clear (Clear) 01/24/18 19:57 Urine pH 6.5 pH Units (5.0-8.0) 01/24/18 19:57 Ur Specific [place] 1.007 (1.010-1.025) L 01/24/18 19:57 Urine Protein Negative mg/dL (Neg-Trace) 01/24/18 19:57 Urine Glucose (UA) Normal mg/dL (Normal) 01/24/18 19:57 Urine Ketones Negative mg/dL (Negative) 01/24/18 19:57 Urine Blood Negative (Negative) 01/24/18 19:57 Urine Nitrite Negative (Negative) 01/24/18 19:57 Urine Bilirubin Negative (Negative) 01/24/18 19:57 Urine Urobilinogen Normal mg/dL (Normal) 01/24/18 19:57 Ur Leukocyte Esterase Small (Negative) H 01/24/18 19:57 Urine Microscopic RBC 0-3 per hpf (0-3) 01/24/18 19:57 Urine Microscopic WBC 3-5 per hpf (0-3) H 01/24/18 19:57 Ur Squamous Epith Cells Many per lpf (None-Few) H 01/24/18 19:57 Urine Bacteria Few per hpf (None-Few) 01/24/18 19:57 Hyaline Casts None Seen per lpf (None-Few) 01/24/18 19:57 Ur Culture Indicated? NO. (NO) A 01/24/18 19:57 Salicylates < 2.5 mg/dL (15.0-30.0) L 01/24/18 19:50 Urine Opiates Screen Negative ng/mL (Ljpopo=193) 01/24/18 19:57 Acetaminophen < 10 mcg/mL (10-20) L 01/24/18 19:50 Ur Barbiturates Screen Negative ng/mL (Zuogih=467) 01/24/18 19:57 Ur Phencyclidine Scrn Negative ng/mL (Cutoff=25) 01/24/18 19:57 Ur Amphetamines Screen Negative ng/mL (Htkhdi=3458) 01/24/18 19:57 U Benzodiazepines Scrn Negative ng/mL (Pacygx=711) 01/24/18 19:57 Urine Cocaine Screen Negative ng/mL (Cutoff= 300) 01/24/18 19:57 U Marijuana (THC) Screen Negative ng/mL (Cutoff = 50) 01/24/18 19:57 Ur Drug Screen Interp See Below 01/24/18 19:57 Ethyl Alcohol < 10 mg/dL (Less than 10) 01/24/18 19:50 Consult Discharge Plan - Plan Referrals: NONE,PCP [Primary Care Provider] -
--- NOTE | 2018-01-25 14:46 | Discharge Summary ---
- NOTES TO OUTPATIENT PROVIDER Notes to Outpatient Provider: Patient was hospitalized for altered mental status and increased excessive somnolence most likely related to drug overdose. She was monitored in the hospital and given IV fluids. Psychiatric was consulted to evaluate the patient. Per their evaluation patient is cleared for discharge from their standpoint. She will follow up with her primary care provider for further management of her chronic medical conditions. She will also follow-up with psychiatry as outpatient to get further treatment for her psychiatric conditions. Orders not resulted at time of discharge: Pending orders 01/25/18 04:37 Culture,Urine [RM] Routine 01/25/18 06:10 Drug Screen, Serum [Drug Screen 9 Reflex Conf Qnt] AM 0400 Date of Encounter: 01/25/18 Time of Encounter: 14:43 - Discharge Diagnosis (1) Overdose Priority: Primary Status: Acute Qualifiers: Encounter type: initial encounter Injury intent: undetermined intent Qualified Code(s): T50.904A - Poisoning by unspecified drugs, medicaments and biological substances, undetermined, initial encounter (2) Acute psychosis Priority: Secondary Status: Acute (3) Bipolar disorder Priority: Secondary Status: Chronic Qualifiers: Active/Remission status: remission status unspecified Qualified Code(s): F31.9 - Bipolar disorder, unspecified (4) HTN (hypertension) Priority: Secondary Status: Chronic Qualifiers: Hypertension type: essential hypertension Qualified Code(s): I10 - Essential (primary) hypertension (5) HLD (hyperlipidemia) Priority: Secondary Status: Chronic Qualifiers: Hyperlipidemia type: mixed hyperlipidemia Qualified Code(s): E78.2 - Mixed hyperlipidemia (6) Nicotine dependence Priority: Secondary Status: Acute Qualifiers: Nicotine product type: cigarettes Substance use status: uncomplicated Qualified Code(s): F17.210 - Nicotine dependence, cigarettes, uncomplicated (7) GERD (gastroesophageal reflux disease) Priority: Secondary Status: Chronic Qualifiers: Esophagitis presence: without esophagitis Qualified Code(s): K21.9 - Gastro -esophageal reflux disease without esophagitis (8) DVT prophylaxis Priority: Secondary Status: Acute (9) Hypokalemia Priority: Secondary Status: Resolved (10) UTI (urinary tract infection) Priority: Secondary Status: Ruled-out Qualifiers: Urinary tract infection type: acute cystitis Hematuria presence: without hematuria Qualified Code(s): N30.00 - Acute cystitis without hematuria Hospital course: Ms. James is a 52 year old female Patient with history of bipolar disorder, schizophrenia, hypertension, hyperlipidemia who was hospitalized yesterday for altered mental status and increased excessive somnolence most likely related to drug overdose. She had apparently taken multiple doses of Suboxone in an apparent suicide attempt. She was also having hallucinations here. However, patient denied taking multiple doses of Suboxone and reported that she smoked marijuana earlier that day. She was monitored in the hospital and given IV fluids. Her labs were mostly within normal limits. She did have mild hypokalemia which has now resolved. Psychiatry was consulted to evaluate the patient. Per their evaluation patient does not want to be admitted to psychiatric unit for further care and she does not meet criteria for involuntary psychiatric admission. They did not recommend starting the patient on antipsychotic agent and that she follow up outpatient with her psychiatrist and therapist. I will defer starting this medication to her outpatient psychiatrist given the multiple medications that she is already on. In the meantime, I am decreasing her dose of gabapentin to 300 mg, 3 times daily and her hydroxyzine to 25 mg as needed 4 times a day. Clinically, she is doing much better now and tolerating diet well. She is stable to be discharged from medical standpoint. She will follow up with her primary care provider for further management of her chronic medical conditions. She will also follow-up with psychiatry as outpatient to get further treatment for her psychiatric conditions. She will also follow-up with her digital asset specialist for further management of her Suboxone. As she denies taking extra pills of Suboxone, she has been counseled to be more diligent with her medications and avoid taking multiple medications together. There was concern for UTI based on her initial urinalysis. However she had many squamous cells and culture was not indicated. She only had 3-5 WBC. Not indicated of UTI. No need for further antibiotics. Discharge discussed with: patient, nurse - Time Spent with Patient Total time spent providing and/or coordinating discharge services: Less than 30 minutes (25 min) - Discharge Medications Home Medications: Atorvastatin [Lipitor] 10 mg PO HS 11/25/17 [History] Baclofen [Lioresal] 10 mg PO TID 11/25/17 [History] Buprenorphine HCl/Naloxone HCl [Buprenorphin-Naloxon 8-2 mg Sl] 1.5 tab SL QAM 11/25/17 [History] Cholecalciferol (D-3) [Vitamin D] 1,000 unit PO DAILY 11/25/17 [History] Metoprolol [Lopressor] 50 mg PO BID 11/25/17 [History] Omeprazole [PriLOSEC] 40 mg PO DAILY 11/25/17 [History] PARoxetine HCl [Paroxetine HCl] 40 mg PO DAILY 11/25/17 [History] amLODIPine [Norvasc] 5 mg PO DAILY 11/25/17 [History] traZODone [TraZODone] 50 mg PO HS PRN 30 Days #30 tablet 12/02/17 [Rx] Amitriptyline [Elavil] 25 mg PO HS 01/25/18 [History] Buspirone HCl [Buspar] 5 mg PO BID 01/25/18 [History] Gabapentin [Neurontin] 300 mg PO TID #0 01/25/18 [Rx] Hydrochlorothiazide [Microzide] 12.5 mg PO DAILY 01/25/18 [History] hydrOXYzine pamoate [HydrOXYzine Pamoate] 25 mg PO Q6H PRN capsule 01/25/18 [Rx ] Allergies/Adverse Reactions: 3 Allergy/AdvReac Type Severity Reaction Status Date / Time No Known Allergies Allergy Verified 09/05/17 09:41 Date of admission: 01/24/18 21:36 Primary care physician: PCP NONE Consults: 01/24/18 23:53 Consult for Pharmacy Education [CONS] Stat Reason for Consult: Please verify home medications. Notify MD when this is complete. Thanks. Call Completed: No 01/25/18 01:33 Consult to Psychiatry [CONS] Routine Consulting Provider: Psychiatry [place] Reason consult: Sitter/1:1 Psychosis Medication recommendation Other Other reason and/or additional details: Drug Overdose, ?Suicidal Ideation Call Completed: No 01/25/18 01:38 Consult to Equine Intern [CONS] Routine Reason for SW Consult: Discharge Planning to Psych Discharging clinician: Marcellus Anderson Anticipated date of discharge: 01/25/18 - Constitutional Vitals: Temp Pulse Resp BP Pulse Ox 98.1 F 87 16 150/82 92 01/25/18 12:15 01/25/18 12:15 01/25/18 12:15 01/25/18 12:15 01/25/18 12:15 General appearance: Present: A&O X 0, no acute distress. Absent: cooperative, answers questions appropriately - Neck Neck exam general surgery: Present: supple, trachea midline. Absent: lymphadenopathy - Respiratory Respiratory exam: Present: CTAB. Absent: accessory muscle use, rales, rhonchi, wheezes - Cardiovascular Cardiovascular exam: Present: RRR, +S1, +S2. Absent: diastolic murmur, gallop, rubs, systolic murmur - GI/Abdominal GI/Abdominal exam: Present: normal bowel sounds, soft, no peritoneal signs. Absent: distended, tenderness - Patient Status Disposition: Home, Self-Care Condition: Good Functional capacity at discharge: independent ambulation Overall status at discharge: patient is progressing back to baseline - Discharge Instructions Follow Up With: NONE,PCP [Primary Care Provider] - (Follow-up with PCP in 1 week) Additional Instructions: Avoid taking multiple psychotropic medications together especially when he is also taking Suboxone and gabapentin. Follow up with your psychiatrist and therapist to better control her symptoms from bipolar disorder and schizophrenia. - Diet and Activity Activity: increase activity as tolerated Diet: advance to your usual diet
[2018-01-25] MEDS ORDERED: Baclofen 10 MG TABLET PO SCH (15:00)
[2018-01-26] MEDS ORDERED: hydroCHLOROthiazide 25 MG TABLET PO SCH (09:00)
[2018-01-26] MEDS ORDERED: Cholecalciferol (D-3) 1,000 UNIT TABLET PO SCH (09:00)
--- NOTE | 2018-01-26 17:27 | Electrocardiograph Report ---
[address] [address] Test Date: 2018-01-24 Pat Name: Seble James Department: 103 Room: 2A62 Gender: F Bottom Loader: EKP : 1965 Requested By: Rayshawn Burkett Order Number: [id number] Reading MD: Aarti Carvalho Measurements Intervals [place] Rate: 80 P: 39 WY: 237 QRS: 36 QRSD: 98 T: 12 QT: 396 QTc: 431 Interpretive Statements SINUS RHYTHM WITH FIRST DEGREE AV BLOCK POSSIBLE LEFT ATRIAL ENLARGEMENT [-0.1mV P WAVE IN V1/V2] NONSPECIFIC T-WAVE ABNORMALITY Electronically Signed On 01-26-2018 17:25:25 EDT by Aarti Carvalho
[2018-01-27 02:31] LABS: Amphetamines NEGATIVE ng/mL (Cutoff 30); Barbiturates NEGATIVE ng/mL (Cutoff 75); Benzodiazepines NEGATIVE ng/mL (Cutoff 75); Cocaine NEGATIVE ng/mL (Cutoff 30); Methadone NEGATIVE ng/mL (Cutoff 40); Methamphetamines NEGATIVE ng/mL (Cutoff 30); Opiates NEGATIVE ng/mL (Cutoff 30); Phencyclidine NEGATIVE ng/mL (Cutoff 15)
[2018-02-01 12:24] LABS: Norbuprenorphine 5.5 ng/mL
[2018-02-02 08:04] LABS: Buprenorphine 1.8 ng/mL
== END 2018-01-25 18:59 | disposition home or self-care (01) ==
LOC: EMEROO 18:56 → 2ANU 18:56 → SUATTDRO 21:36 → 2ANU 23:18
PROVIDERS: ADMIT Family Medicine; ATTEND Internal Medicine

== ENCOUNTER 2018-03-07 14:26 | Observation (INO) ==
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
[2018-03-07 16:03] LABS: Hematocrit 40.6 % (35.3-44.9); Hemoglobin 13.7 g/dL (11.5-15.4); Mean Corpuscular HGB Conc 33.7 g/dL (31.6-35.5); Mean Platelet Volume 10.8 fL (9.4-12.4); Platelet Count 205 K/mcL (140-400); Red Blood Count 4.72 M/mcL (3.82-4.97); Red Cell Distribution Width 13.9 % (11.5-14.5); Segmented Neutrophils % 70.8 %
[2018-03-07 16:04] LABS: Basophils % 0.5 %; Eosinophils # 0.1 K/mcL (0.0-0.6); Eosinophils % 0.6 %; Immature Granulocytes % 0.2 % (0-4); Lymphocytes # 1.9 K/mcL (0.6-4.6); Lymphocytes % 21.8 %; Monocytes # 0.5 K/mcL (0.0-1.3); Monocytes % 6.1 %; Neutrophils # 6.3 K/mcL (1.6-8.9)
[2018-03-07 16:10] LABS: INR 1.1; Prothrombin Time 11.9 Seconds (9.4-12.1)
[2018-03-07 16:22] LABS: Troponin I < 0.03 ng/mL (< 0.04)
[2018-03-07 16:23] LABS: Acetaminophen < 10 mcg/mL (10-20); Alanine Aminotransferase 10 Units/L (7-52); Albumin/Globulin Ratio 1.8 (1.1-2.2); Alkaline Phosphatase 167 Units/L (34-104); Aspartate Amino Transferase 13 Units/L (13-39); BUN/Creatinine Ratio 15 (6-26); Bilirubin,Direct 0.1 mg/dL (0.0-0.2); Bilirubin,Indirect 0.3 mg/dL (0.0-1.2); Bilirubin,Total 0.4 mg/dL (0.3-1.0); Blood Urea Nitrogen 22 mg/dL (6-20); Calcium 10.1 mg/dL (8.6-10.3); Carbon Dioxide 29 mEq/L (23-29); Chloride 101 mEq/L (98-107); Ethanol < 10 mg/dL (Less than 10); Globulin 2.8 g/dL (2.4-3.5); Glucose 103 mg/dL (70-105); Osmolality,Calculated 288 (280-300); Potassium 3.2 mEq/L (3.5-5.1); Salicylate < 2.5 mg/dL (15.0-30.0); Sodium 137 mEq/L (136-145); Total Protein 7.8 g/dL (6.4-8.9); eGFR For Non-African Americans 36 (> 60)
[2018-03-07 17:05] LABS: Bilirubin,Urine Negative (Negative); Blood,Urine Negative (Negative); Clarity,Urine Clear (Clear); Color,Urine Yellow (Yellow); Glucose,Urine (UA) Normal (Normal); Ketones,Urine Negative (Negative); Leukocyte Esterase,Urine Trace (Negative); Nitrite,Urine Negative (Negative); PH,Urine 6.5 pH Units (5.0-8.0); Protein,Urine Negative (Neg-Trace); Specific Gravity,Urine 1.014 (1.010-1.025); Urobilinogen,Urine Normal (Normal)
[2018-03-07 17:07] LABS: Bacteria,Urine None Seen per hpf (None-Few); Hyaline Casts,Urine None Seen per lpf (None-Few); RBC,Urine 0-3 per hpf (0-3); Squamous Epithelial Cell,Urine Many per lpf (None-Few); WBC,Urine 0-3 per hpf (0-3)
[2018-03-07 17:32] LABS: Amphetamine Screen,Urine Negative ng/mL (Cutoff=1000); Barbiturate Screen,Urine Negative ng/mL (Cutoff=200); Benzodiazepines Screen,Urine Negative ng/mL (Cutoff=200); Cannabinoid Screen,Urine Positive ng/mL (Cutoff = 50); Cocaine Screen,Urine Negative ng/mL (Cutoff= 300); Opiate Screen,Urine Negative ng/mL (Cutoff=300); Phencyclidine Screen,Urine Negative ng/mL (Cutoff=25)
[2018-03-07] MEDS ORDERED: 0.9 % Sodium Chloride 1,000 ML IVC ONE (18:00)
[2018-03-07] MEDS ORDERED: Naloxone 0.4 MG/ML INJ IVP PRN (20:47)
--- NOTE | 2018-03-07 21:00 | Internal Med History&Physical ---
Date of Encounter: 03/07/18 Time of Encounter: 20:15 Internal Medicine - H&P: HPI Chief complaint: altered mental status; hallucinating; somnolence Admitted From: Emergency Dept Plans for Post Hospital Care: Transfer Psych Facility History of present illness: Ms. James is a 52 year old female who presents to the ER tonight with complaints of altered mental status, hallucinations, hypersomnolence, and for concerns of possible overdose on one of her medications. Workup in ER revealed patient be somnolent, dehydrated, confused, disoriented, and having hallucinations. She had evidence of acute kidney injury on laboratory analysis. Psychiatry was consulted, and patient was admitted to hospitalist service for further workup and care. She was pink-slipped by the ER staff. Upon my assessment of the patient, she is somnolent but arousable. She is confused and disoriented. She is only oriented to herself and that she is in the hospital. She is not actively hallucinating at this moment. However, she keeps repeating her words and appears very confused. She moves all 4 extremities and does not exhibit any focal deficits. She easily drifts off to sleep, even in mid-sentence. No further history could be obtained from patient. There are no family members present to provide further history. I reviewed her old records and note that she has been hospitalized in psychiatry unit a few times as well. Given her history of psychiatric disorders , current altered mental status, and reports of hallucinations, I am going to order a sitter and await psychiatry consultation. Psychiatry has already been consulted by the ER. Past Med Surg Social Fam HX - Past Medical History Source: old records reviewed, other (ER notes) Medical history: GERD, hyperlipidemia, hypertension, other Additional medical history: illegal drug abuse and abuse of prescription meds especially Neurontin and Opiates Psychiatric history: anxiety, depression, previous psychiatric hospitalization - Past Surgical History Additional surgical history: Unable to obtain due to patient condition of somnolence. - Social History Smoking Status: Current every day smoker Smokeless Tobacco Status: No Alcohol use: none Drug use: opiates, marijuana, IV Drug Use, prescription drug abuse Current living situation: Home, With Family - Family History Mother History Unknown: Yes Father History Unknown: Yes Internal Medicine - H&P: Meds Atorvastatin [Lipitor] 10 mg PO HS 11/25/17 [History] Baclofen [Lioresal] 10 mg PO TID 11/25/17 [History] Buprenorphine HCl/Naloxone HCl [Buprenorphin-Naloxon 8-2 mg Sl] 1.5 tab SL QAM 11/25/17 [History] Cholecalciferol (D-3) [Vitamin D] 1,000 unit PO DAILY 11/25/17 [History] Metoprolol [Lopressor] 50 mg PO BID 11/25/17 [History] Omeprazole [PriLOSEC] 40 mg PO DAILY 11/25/17 [History] PARoxetine HCl [Paroxetine HCl] 40 mg PO DAILY 11/25/17 [History] amLODIPine [Norvasc] 5 mg PO DAILY 11/25/17 [History] traZODone [TraZODone] 50 mg PO HS PRN 30 Days #30 tablet 12/02/17 [Rx] Amitriptyline [Elavil] 25 mg PO HS 01/25/18 [History] Buspirone HCl [Buspar] 5 mg PO BID 01/25/18 [History] Gabapentin [Neurontin] 300 mg PO TID #0 01/25/18 [Rx] Hydrochlorothiazide [Microzide] 12.5 mg PO DAILY 01/25/18 [History] hydrOXYzine pamoate [HydrOXYzine Pamoate] 25 mg PO Q6H PRN capsule 01/25/18 [Rx ] 3 Allergy/AdvReac Type Severity Reaction Status Date / Time No Known Allergies Allergy Verified 03/07/18 15:05 ROS unobtainable: due to mental status Review of systems: unable to obtain - Constitutional Vitals: Temp Pulse Resp BP Pulse Ox 98.7 F 74 16 139/86 97 03/07/18 20:04 03/07/18 20:04 03/07/18 20:04 03/07/18 20:04 03/07/18 20:04 General appearance: Present: A&O X 1, disheveled, no acute distress. Absent: answers questions appropriately Exam: somnolent, confused, disoriented, pressured speech and word repetition when awake - Head Head exam: Present: atraumatic, normal inspection - Eye Eye exam: Present: EOMI, PERRL (pupils 2-3 mm and reactive). Absent: scleral icterus Pupils: Present: normal accommodation - ENT ENT exam: Present: mucous membranes dry, normal exam, normal oropharynx - Neck Neck exam general surgery: Present: full ROM, supple. Absent: tenderness, nuchal rigidity, thyromegaly - Respiratory Respiratory exam: Present: CTAB. Absent: chest wall tenderness, rales, rhonchi , wheezes - Cardiovascular Cardiovascular exam: Present: RRR, +S1, +S2. Absent: diastolic murmur, systolic murmur - GI/Abdominal GI/Abdominal exam: Present: normal bowel sounds, soft. Absent: guarding, hepatomegaly, mass, rebound, splenomegaly, tenderness - Extremities Exam Extremities exam: Present: normal capillary refill, normal inspection, warm, radial pulses palpable and symmetrical. Absent: calf tenderness, joint swelling , pedal edema, tenderness - Back Exam Back exam: Absent: CVA tenderness (L), CVA tenderness (R) - Neurological Exam Neurological exam: Present: altered, CN II-XII intact, no focal deficits, strengths equal and symetr throughout. Absent: oriented X3, facial droop Additional comments: somnolent; easily arousable; confused; no focal deficits - Psychiatric Additional comments: somnolent - Skin Skin exam: Present: dry, intact, warm Internal Med - H&P Results - Labs CBC & Chem 7: 03/07/18 15:33 03/07/18 15:33 - EKG Data -: EKG Interpreted by Myself - EKG Data Prior EKG available for review: no EKG comments: 03/07/18 21:08 NSR; WI prolongation (otherwise normal) - Diagnostic Studies Chest x-ray Status: image reviewed by me (negative) CT scan - head Additional comments: Report reviewed: negative - Assessment and plan (1) Altered mental status, unspecified Current Visit: Yes Status: Acute Assessment and plan: 1. Unable to determine if related to underlying psychiatric disorder vs inadvertent medication ingestion. 2. Will hold home meds tonight, monitor closely, and reassess clinically. 3. Monitor on telemetry given unknown medication intake. 4. Psychiatry consult. 5. Monitor glucose. Qualifiers: Altered mental status type: somnolence Qualified Code(s): R40.0 - Somnolence (2) PIERCE (acute kidney injury) Current Visit: Yes Status: Acute Assessment and plan: 1. Will hydrate with IVF and monitor electrolytes and kidney function. 2. Consult nephrology if renal function does not improve. (3) Acute psychosis Current Visit: Yes Status: Suspected Assessment and plan: 1. Unable to determine on my exam. 2. Reported per ER and mother's report that she was hallucinating. 3. Psychiatry consult. 4. Patient pink slipped in ER. 5. 24 hour sitter ordered. (4) DVT prophylaxis Current Visit: Yes Status: Acute Assessment and plan: 1. Heparin SQ.
[2018-03-07] MEDS: 0.9 % Sodium Chloride w KCl 20 MEQ/1,000 ML MLS IVC SCH (21:29)
[2018-03-08] MEDS ORDERED: *HR* LORazepam 0.5 MG TABLET PO ONE (02:33)
[2018-03-08] MEDS ORDERED: *HR* LORazepam 0.5 MG TABLET ONE (02:34)
[2018-03-08 05:25] LABS: Basophils % 0.5 %; Eosinophils # 0.1 K/mcL (0.0-0.6); Eosinophils % 1.5 %; Hemoglobin 12.6 g/dL (11.5-15.4); Immature Granulocytes % 0.3 % (0-4); Lymphocytes % 27.3 %; Mean Corpuscular HGB Conc 33.2 g/dL (31.6-35.5); Mean Corpuscular Hemoglobin 28.9 pg (28.0-33.3); Mean Corpuscular Volume 87.2 fL (83.0-100.0); Mean Platelet Volume 11.2 fL (9.4-12.4); Monocytes # 0.6 K/mcL (0.0-1.3); Monocytes % 8.6 %; Neutrophils # 4.5 K/mcL (1.6-8.9); Platelet Count 167 K/mcL (140-400); Red Blood Count 4.36 M/mcL (3.82-4.97); Red Cell Distribution Width 13.9 % (11.5-14.5); Segmented Neutrophils % 61.8 %
[2018-03-08 05:45] LABS: Alanine Aminotransferase 8 Units/L (7-52); Albumin 4.3 g/dL (3.5-5.7); Albumin/Globulin Ratio 1.8 (1.1-2.2); Alkaline Phosphatase 142 Units/L (34-104); Aspartate Amino Transferase 12 Units/L (13-39); BUN/Creatinine Ratio 20 (6-26); Bilirubin,Total 0.4 mg/dL (0.3-1.0); Blood Urea Nitrogen 19 mg/dL (6-20); Calcium 9.1 mg/dL (8.6-10.3); Carbon Dioxide 26 mEq/L (23-29); Chloride 107 mEq/L (98-107); Globulin 2.4 g/dL (2.4-3.5); Glucose 99 mg/dL (70-105); Magnesium 1.8 mg/dL (1.6-2.6); Osmolality,Calculated 292 (280-300); Sodium 140 mEq/L (136-145); Total Protein 6.7 g/dL (6.4-8.9); eGFR For Non-African Americans > 60 (> 60)
[2018-03-08] MEDS ORDERED: *HR* Heparin 5,000 UNIT/ML VIAL SQ SCH (06:00)
[2018-03-08] MEDS: 0.9 % Sodium Chloride w KCl 20 MEQ/1,000 ML MLS IVC SCH (06:47)
[2018-03-08 11:53] VITALS: BP 128/85
--- NOTE | 2018-03-08 13:42 | Consult Note ---
Date of Encounter: 03/08/18 Time of Encounter: 13:36 Assessment & Recommendation (1) Altered mental status, unspecified Current visit: Yes Status: Acute Assessment & Recommendation: Suspect presentation is related to heavy Mountain Dew intake, poor sleep, poor nutrition, and altered sleep/wake cycle with misuse of home meds. Discussed importance of cutting back on her caffeine use, regulating her schedule, and taking meds at same time every day. 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 Follow up with outpatient psychiatrist as scheduled. Qualifiers: Altered mental status type: somnolence Qualified Code(s): R40.0 - Somnolence History of Present Illness Requesting Physician: Luis Gutiérrez MD Reason for consult: AMS History of present illness: Ms. James is a 52 year old female who was admitted for an altered mental status. On eval today she is alert and oriented. She is unsure why she was so confused. She has presented to the hospital in a confused state before with a normal medical work-up. Admitted to for a week the last time. Stable throughout that admission with no issues. Client discharged thinking presentation due to sleep deprivation. Today she reports she is drinking a pack of Mountain Dew a day. Does not eat well. Sleep is poor. Lives in her mother's basement. Likely has an altered wake/sleep cycle. Takes mental health medications but timing of doses is likely off if her sleep schedule is off. Client denies she is depressed. Denies SI/HI. No evidence of psychosis today. Suspect presentation is secondary to poor nutrition, poor sleep, and misuse of medications due to altered sleep/wake cycle. CC: Luis Gutiérrez MD Past Med Surg Social Fam HX - Past Medical History Medical history: GERD, hyperlipidemia, hypertension, other - Past Psychiatric History Psychiatric history: Reports: previous psychiatric hospitalization Family psychiatric history: Unknown Family History of Suicide: Unknown - Social History Smoking Status: Current every day smoker Smokeless Tobacco Status: No Alcohol use: none Drug use: opiates, marijuana, IV Drug Use, prescription drug abuse - Family History Mother History Unknown: Yes Father History Unknown: Yes Medications & Allergies Atorvastatin [Lipitor] 10 mg PO HS 11/25/17 [History] Baclofen [Lioresal] 10 mg PO TID 11/25/17 [History] Buprenorphine HCl/Naloxone HCl [Buprenorphin-Naloxon 8-2 mg Sl] 1.5 tab SL QAM 11/25/17 [History] Cholecalciferol (D-3) [Vitamin D] 1,000 unit PO DAILY 11/25/17 [History] Metoprolol [Lopressor] 50 mg PO BID 11/25/17 [History] Omeprazole [PriLOSEC] 40 mg PO DAILY 11/25/17 [History] PARoxetine HCl [Paroxetine HCl] 40 mg PO DAILY 11/25/17 [History] amLODIPine [Norvasc] 5 mg PO DAILY 11/25/17 [History] traZODone [TraZODone] 50 mg PO HS PRN 30 Days #30 tablet 12/02/17 [Rx] Amitriptyline [Elavil] 25 mg PO HS 01/25/18 [History] Buspirone HCl [Buspar] 5 mg PO BID 01/25/18 [History] Gabapentin [Neurontin] 300 mg PO TID #0 01/25/18 [Rx] Hydrochlorothiazide [Microzide] 12.5 mg PO DAILY 01/25/18 [History] hydrOXYzine pamoate [HydrOXYzine Pamoate] 25 mg PO Q6H PRN capsule 01/25/18 [Rx ] Buprenorphine HCl/Naloxone HCl [Suboxone 12 mg-3 mg Sl Film] 1 each SL DAILY 03/17 [History] 3 Allergy/AdvReac Type Severity Reaction Status Date / Time No Known Allergies Allergy Verified 03/07/18 15:05 Review of Systems Constitutional: Denies: fever, chills, weakness, weight change Eyes: Denies: eye pain, vision change Ears, Nose, Throat: Denies: ear pain, throat pain, dental pain, hearing loss, congestion Cardiovascular: Denies: chest pain, palpitations, dyspnea on exertion Respiratory: Denies: cough, dyspnea, wheezes Gastrointestinal: Denies: abdominal pain, nausea, vomiting, diarrhea, constipation Genitourinary female: Denies: urgency, dysuria, frequency, abnormal menses, dyspareunia Musculoskeletal: Denies: joint swelling, joint pain Integumentary: Denies: rash, lesions, pruritus Neurological: Denies: headache, weakness, numbness, memory loss Endocrine: Denies: fatigue, heat or cold intolerance Hematologic/Lymphatic: Denies: easy bruising, lymphadenopathy Allergic/Immunologic: Denies: urticaria, itchy eyes Psychiatry Exam - Constitutional Vitals: Temp Pulse Resp BP Pulse Ox 98.0 F 91 16 128/85 97 03/08/18 11:52 03/08/18 11:52 03/08/18 11:52 03/08/18 11:52 03/08/18 11:52 General appearance: age & developmentally appropriate - Musculoskeletal Gait: normal Station: relaxed Strength & Tone: normal for patient - Psychiatric Patient Orientation: Yes Person, Yes Time, Yes Place Level of alertness: Alert Behavior: calm, cooperative Psychomotor activity: Normal Eye Contact: Maintains Eye Contact Mood Description: Euthymic/stable Affect description: congruent with mood, full range Speech Volume: Normal Speech pattern: normal rate, normal rhythm, normal tone, fluent, spontaneous Language & Vocabulary: consistent with education Thought Process: Linear, Goal Oriented Thought Content: No Suicidal ideation, No Homicidal ideation, No Overt delusions Perceptual Disturbances: No Auditory hallucinations, No Visual hallucinations Attention Span Ability: Capable of Focused Attention Memory Description: Grossly Intact Patient Reliability: Reliable Historian Fund of knowledge: Yes abstraction ability, Yes aware of current events Intelligence Estimate: Average Judgment: Limited Insight: Partial Results - Labs Labs: Laboratory Last Values WBC 7.3 K/mcL (4.3-11.1) 03/08/18 04:13 RBC 4.36 M/mcL (3.82-4.97) 03/08/18 04:13 Hgb 12.6 g/dL (11.5-15.4) 03/08/18 04:13 Hct 38.0 % (35.3-44.9) 03/08/18 04:13 MCV 87.2 fL (83.0-100.0) 03/08/18 04:13 MCH 28.9 pg (28.0-33.3) 03/08/18 04:13 MCHC 33.2 g/dL (31.6-35.5) 03/08/18 04:13 RDW 13.9 % (11.5-14.5) 03/08/18 04:13 Plt Count 167 K/mcL (140-400) 03/08/18 04:13 MPV 11.2 fL (9.4-12.4) 03/08/18 04:13 Immature Gran % 0.3 % (0-4) 03/08/18 04:13 Seg Neutrophils % 61.8 % 03/08/18 04:13 Lymphocytes % 27.3 % 03/08/18 04:13 Monocytes % 8.6 % 03/08/18 04:13 Eosinophils % 1.5 % 03/08/18 04:13 Basophils % 0.5 % 03/08/18 04:13 Neutrophils # 4.5 K/mcL (1.6-8.9) 03/08/18 04:13 Lymphocytes # 2.0 K/mcL (0.6-4.6) 03/08/18 04:13 Monocytes # 0.6 K/mcL (0.0-1.3) 03/08/18 04:13 Eosinophils # 0.1 K/mcL (0.0-0.6) 03/08/18 04:13 Basophils # 0.0 K/mcL (0.0-0.2) 03/08/18 04:13 PT 11.9 Seconds (9.4-12.1) 03/07/18 15:33 INR 1.1 03/07/18 15:33 Sodium 140 mEq/L (136-145) 03/08/18 04:13 Potassium 3.0 mEq/L (3.5-5.1) L 03/08/18 04:13 Chloride 107 mEq/L (98-107) 03/08/18 04:13 Carbon Dioxide 26 mEq/L (23-29) 03/08/18 04:13 BUN 19 mg/dL (6-20) 03/08/18 04:13 Creatinine 0.96 mg/dL (0.60-1.20) 03/08/18 04:13 Est GFR ( Amer) > 60 (> 60) 03/08/18 04:13 Est GFR (Non-Af Amer) > 60 (> 60) 03/08/18 04:13 BUN/Creatinine Ratio 20 (6-26) 03/08/18 04:13 Glucose 99 mg/dL (70-105) 03/08/18 04:13 POC Glucose 98 mg/dL (70-99) 03/07/18 22:39 Calculated Osmolality 292 (280-300) 03/08/18 04:13 Calcium 9.1 mg/dL (8.6-10.3) 03/08/18 04:13 Magnesium 1.8 mg/dL (1.6-2.6) 03/08/18 04:13 Total Bilirubin 0.4 mg/dL (0.3-1.0) 03/08/18 04:13 Direct Bilirubin 0.1 mg/dL (0.0-0.2) 03/07/18 15:33 Indirect Bilirubin 0.3 mg/dL (0.0-1.2) 03/07/18 15:33 AST 12 Units/L (13-39) L 03/08/18 04:13 ALT 8 Units/L (7-52) 03/08/18 04:13 Alkaline Phosphatase 142 Units/L (34-104) H 03/08/18 04:13 Ammonia 43 mcmol/L (16-53) 03/07/18 15:50 Troponin I < 0.03 ng/mL (< 0.04) 03/07/18 15:33 Serum Total Protein 6.7 g/dL (6.4-8.9) 03/08/18 04:13 Albumin 4.3 g/dL (3.5-5.7) 03/08/18 04:13 Globulin 2.4 g/dL (2.4-3.5) 03/08/18 04:13 Albumin/Globulin Ratio 1.8 (1.1-2.2) 03/08/18 04:13 Urine Color Yellow (Yellow) 03/07/18 16:51 Urine Clarity Clear (Clear) 03/07/18 16:51 Urine pH 6.5 pH Units (5.0-8.0) 03/07/18 16:51 Ur Specific [place] 1.014 (1.010-1.025) 03/07/18 16:51 Urine Protein Negative mg/dL (Neg-Trace) 03/07/18 16:51 Urine Glucose (UA) Normal mg/dL (Normal) 03/07/18 16:51 Urine Ketones Negative mg/dL (Negative) 03/07/18 16:51 Urine Blood Negative (Negative) 03/07/18 16:51 Urine Nitrite Negative (Negative) 03/07/18 16:51 Urine Bilirubin Negative (Negative) 03/07/18 16:51 Urine Urobilinogen Normal mg/dL (Normal) 03/07/18 16:51 Ur Leukocyte Esterase Trace (Negative) H 03/07/18 16:51 Urine Microscopic RBC 0-3 per hpf (0-3) 03/07/18 16:51 Urine Microscopic WBC 0-3 per hpf (0-3) 03/07/18 16:51 Ur Squamous Epith Cells Many per lpf (None-Few) H 03/07/18 16:51 Urine Bacteria None Seen per hpf (None-Few) 03/07/18 16:51 Hyaline Casts None Seen per lpf (None-Few) 03/07/18 16:51 Ur Culture Indicated? NO. (NO) A 03/07/18 16:51 Salicylates < 2.5 mg/dL (15.0-30.0) L 03/07/18 15:33 Urine Opiates Screen Negative ng/mL (Dxvvcw=109) 03/07/18 16:51 Acetaminophen < 10 mcg/mL (10-20) L 03/07/18 15:33 Ur Barbiturates Screen Negative ng/mL (Qhgbsm=816) 03/07/18 16:51 Ur Phencyclidine Scrn Negative ng/mL (Cutoff=25) 03/07/18 16:51 Ur Amphetamines Screen Negative ng/mL (Xwvmxy=6705) 03/07/18 16:51 U Benzodiazepines Scrn Negative ng/mL (Fzvygj=242) 03/07/18 16:51 Urine Cocaine Screen Negative ng/mL (Cutoff= 300) 03/07/18 16:51 U Marijuana (THC) Screen Positive ng/mL (Cutoff = 50) H 03/07/18 16:51 Ur Drug Screen Interp See Below 03/07/18 16:51 Ethyl Alcohol < 10 mg/dL (Less than 10) 03/07/18 15:33 Consult Discharge Plan - Plan Referrals: NONE,PCP [Primary Care Provider] -
--- NOTE | 2018-03-08 14:02 | Discharge Summary ---
- NOTES TO OUTPATIENT PROVIDER Notes to Outpatient Provider: Polysubstance abuse and polypharmacy. The patient would benefit from down titration of antipsychotics. Please discuss with patient's mental health provider down titration of medications. Discussed things with the patient regarding her Suboxone use an mental health medications appears that she may be seeing multiple providers and getting medications inappropriately. Please reevaluate further. Orders not resulted at time of discharge: Pending orders 03/08/18 06:00 ECG 12 lead ECG [ECG] AM 0600 03/08/18 14:30 Potassium Routine 03/09/18 04:00 Basic Metabolic Panel AM 0400 Complete Blood Count [HEME] AM 0400 03/10/18 04:00 Basic Metabolic Panel AM 0400 Complete Blood Count [HEME] AM 0400 Date of Encounter: 03/08/18 Time of Encounter: 13:51 - Discharge Diagnosis (1) Altered mental status, unspecified Priority: Primary Status: Acute Assessment and Plan: As above Qualifiers: Altered mental status type: somnolence Qualified Code(s): R40.0 - Somnolence (2) Acute psychosis Priority: Secondary Status: Suspected Assessment and Plan: Admitted with reports of acute psychosis Per my examination the patient does not appear to have acute psychosis, does not appear to have any internal stimuli and is not having any hallucinations She continues to deny suicidal or homicidal ideation She has been seen by psychiatry and evaluated Psychiatry recommendations are the patient's presenting condition is likely related to have a Mountain Dew intake, poor sleep, poor nutrition and altered sleep/wake cycle with misuse of all medications The patient was informed that she should cut back on caffeine intake as well as change her lifestyle to promote a better more adequate sleep wake cycle. In addition I have counseled the patient on the need to follow-up with mental health provider outpatient for evaluation of her current medications There is an obvious component of polypharmacy and given her history of polysubstance abuse the patient is a high risk for recurrence of presenting signs and symptoms I have discussed the patient's case with the psychiatrist who agrees with the patient presents without suicidal/homicidal ideation and okay to discharge. (3) PIERCE (acute kidney injury) Priority: Secondary Status: Acute Assessment and Plan: Presented with a chaotic, etiology unclear Renal function back to baseline 0.96 this morning. Denies any prior history of kidney disease (4) DVT prophylaxis Priority: Secondary Status: Acute Hospital course: Ms. James is a 52 year old female Admitted with reports of acute psychosis Per my examination the patient does not appear to have acute psychosis, does not appear to have any internal stimuli and is not having any hallucinations She continues to deny suicidal or homicidal ideation She has been seen by psychiatry and evaluated Psychiatry recommendations are the patient's presenting condition is likely related to have a Mountain Dew intake, poor sleep, poor nutrition and altered sleep/wake cycle with misuse of all medications The patient was informed that she should cut back on caffeine intake as well as change her lifestyle to promote a better more adequate sleep wake cycle. In addition I have counseled the patient on the need to follow-up with mental health provider outpatient for evaluation of her current medications There is an obvious component of polypharmacy and given her history of polysubstance abuse the patient is a high risk for recurrence of presenting signs and symptoms I have discussed the patient's case with the psychiatrist who agrees with the patient presents without suicidal/homicidal ideation and okay to discharge. She is being discharged home in the care of her mother Discharge discussed with: patient, family, nurse, qa consultant - Time Spent with Patient Total time spent providing and/or coordinating discharge services: Less than 30 minutes - Discharge Medications Home Medications: Atorvastatin [Lipitor] 10 mg PO HS 11/25/17 [History] Baclofen [Lioresal] 10 mg PO TID 11/25/17 [History] Buprenorphine HCl/Naloxone HCl [Buprenorphin-Naloxon 8-2 mg Sl] 1.5 tab SL QAM 11/25/17 [History] Cholecalciferol (D-3) [Vitamin D] 1,000 unit PO DAILY 11/25/17 [History] Metoprolol [Lopressor] 50 mg PO BID 11/25/17 [History] Omeprazole [PriLOSEC] 40 mg PO DAILY 11/25/17 [History] PARoxetine HCl [Paroxetine HCl] 40 mg PO DAILY 11/25/17 [History] amLODIPine [Norvasc] 5 mg PO DAILY 11/25/17 [History] traZODone [TraZODone] 50 mg PO HS PRN 30 Days #30 tablet 12/02/17 [Rx] Amitriptyline [Elavil] 25 mg PO HS 01/25/18 [History] Buspirone HCl [Buspar] 5 mg PO BID 01/25/18 [History] Gabapentin [Neurontin] 300 mg PO TID #0 01/25/18 [Rx] Hydrochlorothiazide [Microzide] 12.5 mg PO DAILY 01/25/18 [History] hydrOXYzine pamoate [HydrOXYzine Pamoate] 25 mg PO Q6H PRN capsule 01/25/18 [Rx ] Buprenorphine HCl/Naloxone HCl [Suboxone 12 mg-3 mg Sl Film] 1 each SL DAILY 03/17 [History] Allergies/Adverse Reactions: 3 Allergy/AdvReac Type Severity Reaction Status Date / Time No Known Allergies Allergy Verified 03/07/18 15:05 Date of admission: 03/07/18 19:02 Primary care physician: PCP NONE Discharging clinician: Trevor Mix Anticipated date of discharge: 03/08/18 - Constitutional Vitals: Temp Pulse Resp BP Pulse Ox 98.0 F 91 16 128/85 97 03/08/18 11:52 03/08/18 11:52 03/08/18 11:52 03/08/18 11:52 03/08/18 11:52 General appearance: Present: pleasant, no acute distress. Absent: answers questions appropriately Exam: . - Head Head exam: Present: atraumatic, normocephalic - Eye Eye exam: Present: PERRL, conjuntiva pink, sclera anicteric Pupils: Present: PERRL - Neck Neck exam general surgery: Present: supple, trachea midline. Absent: lymphadenopathy - Respiratory Respiratory exam: Present: CTAB. Absent: accessory muscle use, rales, rhonchi, wheezes - Cardiovascular Cardiovascular exam: Present: RRR, +S1, +S2. Absent: diastolic murmur, gallop, rubs, systolic murmur - GI/Abdominal GI/Abdominal exam: Present: normal bowel sounds, soft, no peritoneal signs. Absent: distended, tenderness - Extremities Exam Extremities exam: Present: warm, radial pulses palpable and symmetrical. Absent : calf tenderness, cyanotic, pedal edema - Neurological Exam Neurological exam: Present: CN II-XII intact, oriented X3, no focal deficits. Absent: pronater drift, facial droop, speech deficit - Skin Skin exam: Present: dry, intact - Patient Status Disposition: Home, Self-Care Condition: Fair Functional capacity at discharge: independent ambulation Overall status at discharge: patient is progressing back to baseline - Discharge Instructions Follow Up With: NONE,PCP [Primary Care Provider] - - Diet and Activity Activity: increase activity as tolerated, resume usual activities as tolerated Diet: advance to your usual diet
--- NOTE | 2018-03-10 11:00 | Electrocardiograph Report ---
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
--- NOTE | 2018-03-11 16:49 | Electrocardiograph Report ---
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
--- NOTE | 2018-03-11 16:50 | Electrocardiograph Report ---
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
== END 2018-03-08 16:47 | disposition home or self-care (01) ==
LOC: 3BNU 14:26 → EMEROOARM 14:26 → 3BNU 19:53
PROVIDERS: ADMIT Pediatrics; ATTEND Internal Medicine